=== PATIENT | male | born 1955 | race Caucasian/White ===

== ENCOUNTER 2018-02-19 08:55 | Observation (INO) ==
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
[2018-02-19] MEDS: *HR* HYDROcodone/Acet 10/325 mg TABLET PO PRN ×2 (12:25→19:24)
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
[2018-02-19 17:22] LABS: Bilirubin,Urine Negative (Negative); Blood,Urine Negative (Negative); Clarity,Urine Clear (Clear); Color,Urine Yellow (Yellow); Glucose,Urine (UA) >=1000 mg/dL (Normal); Ketones,Urine Negative (Negative); Leukocyte Esterase,Urine Negative (Negative); Nitrite,Urine Negative (Negative); Protein,Urine Trace mg/dL (Neg-Trace); Specific Gravity,Urine > 1.030 (1.010-1.025); Urobilinogen,Urine Normal (Normal)
[2018-02-19 17:25] LABS: Bacteria,Urine None Seen per hpf (None-Few); Hyaline Casts,Urine None Seen per lpf (None-Few); RBC,Urine 0-3 per hpf (0-3); Squamous Epithelial Cell,Urine Many per lpf (None-Few)
--- NOTE | 2018-02-20 00:26 | Anesthesia Evaluation PreOp ---
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 creatinine 1.34 on 02-18-18), Diabetes Type II (oral medications only - poorly controlled with A1c 9.3 on 02-18-18) Alcohol Use: none Drug use: none Medications and Allergies ALPRAZolam [Xanax 1 MG Tablet] 1 mg PO TID 02/19/18 [History] Albuterol Sulfate [Proair Hfa] 1 - 2 puff IH Q6H PRN 02/19/18 [History] Amlodipine Besylate 10 mg PO DAILY 02/19/18 [History] Aspirin 81 mg PO DAILY 02/19/18 [History] Carvedilol [Coreg] 25 mg PO BID 02/19/18 [History] Cyclobenzaprine [Flexeril] 10 mg PO TID 02/19/18 [History] Empagliflozin [Jardiance] 10 mg PO DAILY 02/19/18 [History] Etodolac 500 mg PO BID PRN 02/19/18 [History] HYDROcodone/Acet 5/325 mg [[place] 5-325 mg] 1 tab PO Q6H PRN 02/19/18 [History] Imipramine HCl [Tofranil] 10 mg PO HS 02/19/18 [History] Losartan Potassium [Cozaar] 100 mg PO DAILY 02/19/18 [History] Rosuvastatin Calcium [Crestor] 10 mg PO DAILY 02/19/18 [History] Spironolactone [Aldactone] 25 mg PO DAILY 02/19/18 [History] glyBURIDE [GlyBURIDE] 5 mg PO BID 02/19/18 [History] metFORMIN [Glucophage] 1,000 mg PO BID 02/19/18 [History] 3 Allergy/AdvReac Type Severity Reaction Status Date / Time acetaminophen [From Percocet] Allergy Hives Verified 02/19/18 08:44 atorvastatin [From Lipitor] Allergy Hives Verified 02/19/18 08:44 cephalexin [From Keflex] Allergy Hives Verified 02/19/18 08:44 naproxen [From Naprosyn] Allergy Hives Verified 02/19/18 08:44 Oxycodone [From Percocet] Allergy Hives Verified 02/19/18 08:44 Tetracycline Allergy Hives Verified 02/19/18 08:44 - Meds/Allergy Pre-op Review Medications Reviewed: Yes Allergies Reviewed: Yes Beta Blockers on Current Med List: Yes (coreg) Anesthesia Results - Labs 02/20/18 06:45 02/20/18 06:45 Laboratory Tests 02/14/18 02/18/18 02/18/18 18:56 11:38 11:38 WBC 13.3 H Hgb 14.2 D Hct 44.7 Plt Count 209 PT 11.6 INR 1.1 Sodium 137 Potassium 4.3 Chloride 103 Carbon Dioxide 23 BUN 38 H Creatinine 1.34 H Est GFR ( Amer) > 60 Est GFR (Non-Af Amer) 54 L BUN/Creatinine Ratio 28 H Glucose 210 H Est Mean Plasma Glucose Hemoglobin A1c Calculated Osmolality 299 Calcium 9.3 02/18/18 11:38 WBC Hgb Hct Plt Count PT INR Sodium Potassium Chloride Carbon Dioxide BUN Creatinine Est GFR ( Amer) Est GFR (Non-Af Amer) BUN/Creatinine Ratio Glucose Est Mean Plasma Glucose 220 Hemoglobin A1c 9.3 H Calculated Osmolality Calcium - Imaging EKG: report reviewed, image reviewed (SINUS RHYTHM POSSIBLE ANTERIOR MYOCARDIAL INFARCTION, OF INDETERMINATE AGE INFERIOR MYOCARDIAL INFARCTION, PROBABLY OLD INTERPRETATION BASED ON A DEFAULT AGE OF 40 YEARS) Anesthesia Exam Last Vital Signs Temp 98.0 F 02/19/18 23:38 Pulse 74 02/19/18 23:38 Resp 18 02/19/18 23:38 BP 126/83 02/19/18 23:38 Pulse Ox 91 02/19/18 23:38 Weight: 103 kg Anesthesia Assess/Plan ASA Score: 3 Anesthetic Plan: General, Regional Monitoring Plan: Standard Monitors Recovery Plan: PACU
[2018-02-20] MEDS: *HR* HYDROcodone/Acet 10/325 mg TABLET PO PRN ×3 (02:21→22:55)
[2018-02-20 07:26] LABS: Alanine Aminotransferase 10 Units/L (7-52); Albumin 3.9 g/dL (3.5-5.7); Albumin/Globulin Ratio 1.4 (1.1-2.2); Alkaline Phosphatase 51 Units/L (34-104); Aspartate Amino Transferase 15 Units/L (13-39); BUN/Creatinine Ratio 25 (6-26); Bilirubin,Total 0.6 mg/dL (0.3-1.0); Blood Urea Nitrogen 23 mg/dL (8-23); Calcium 9.2 mg/dL (8.6-10.3); Carbon Dioxide 26 mEq/L (23-29); Chloride 108 mEq/L (98-107); Globulin 2.8 g/dL (2.4-3.5); Glucose 179 mg/dL (70-105); Osmolality,Calculated 304 (280-300); Potassium 4.2 mEq/L (3.5-5.1); Sodium 143 mEq/L (136-145); Total Protein 6.7 g/dL (6.4-8.9); eGFR For African Americans > 60 (> 60); eGFR For Non-African Americans > 60 (> 60)
[2018-02-20 07:43] LABS: Basophils % 0.4 %; Eosinophils # 0.2 K/mcL (0.0-0.6); Eosinophils % 2.1 %; Hematocrit 44.9 % (37.5-50.1); Hemoglobin 14.3 g/dL (12.9-16.9); Immature Granulocytes % 0.3 % (0-4); Lymphocytes # 2.1 K/mcL (0.6-4.6); Mean Corpuscular HGB Conc 31.8 g/dL (31.6-35.5); Mean Corpuscular Volume 87.9 fL (83.0-100.0); Mean Platelet Volume 11.2 fL (9.4-12.4); Monocytes # 0.7 K/mcL (0.0-1.3); Monocytes % 7.4 %; Neutrophils # 6.8 K/mcL (1.6-8.9); Platelet Count 223 K/mcL (140-400); Red Blood Count 5.11 M/mcL (4.19-5.50); Segmented Neutrophils % 68.8 %
[2018-02-20] MEDS ORDERED: Dextrose Gel 15 GM/37.5 ML TUBE PO PRN ×4 (11:04→19:39)
[2018-02-20] MEDS ORDERED: D5% in Water 1,000 ML IVC PRN ×2 (11:04→19:39)
[2018-02-20] MEDS ORDERED: *HR* Dextrose 50 % in Water (Syg) 50 ML SYRINGE IVP PRN ×2 (11:04→19:39)
[2018-02-20] MEDS ORDERED: Insulin LISPRO 300 UNITS/3 ML VIAL SQ SCH ×5 (11:30→21:00)
[2018-02-20] MEDS ORDERED: Ondansetron 4 MG/2 ML VIAL ONE ×2 (14:16→15:33)
[2018-02-20] MEDS ORDERED: Lidocaine -MPF 2% 2 ML VIAL ONE ×2 (14:16→15:33)
[2018-02-20] MEDS ORDERED: Lidocaine -MPF 4% 5 ML AMPUL ONE ×2 (14:16→15:33)
[2018-02-20] MEDS ORDERED: *HR* Succinylcholine 200 MG/10 ML VIAL IVP ONE ×2 (14:16→15:33)
[2018-02-20] MEDS ORDERED: *HR* Midazolam HCl 2 MG/2 ML VIAL ONE ×2 (14:16→15:29)
[2018-02-20] MEDS ORDERED: *HR* FentaNYL (PF) 100 MCG/2 ML VIAL ONE ×2 (14:16→15:33)
[2018-02-20] MEDS ORDERED: Dexamethasone 4 MG/ML VIAL ONE ×2 (14:16→15:33)
[2018-02-20] MEDS ORDERED: *HR* Propofol 200 MG/20 ML VIAL IVP ONE ×2 (14:17→15:34)
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
[2018-02-20] MEDS ORDERED: Ipratropium/Albuterol Neb 3 ML IH PRN ×2 (16:02→19:39)
[2018-02-20] MEDS ORDERED: Albuterol 2.5 MG/3 ML NEBULIZER IH ONE (16:07)
[2018-02-20] MEDS ORDERED: Clindamycin 900 MG/50 ML 900 MG/50 ML IV.SOLN IVPB ONE ×2 (16:17→16:56)
--- NOTE | 2018-02-20 17:03 | Orthopedic Operative Note ---
Date of procedure: 02/20/18 Pre-op diagnosis: Displaced right proximal humerus fracture Post-op diagnosis: same Procedure: Procedure: Right proximal humerus open reduction internal fixation Estimated blood loss: 25 cc Hardware: Arthrex 3 hole proximal humeral locking plate, 1 3.5 cortical screws , 11 3.5 Locking screws Operative procedure: The patient was brought to the operating room and placed on the operating room table. After general anesthesia was administered the operative arm was prepped and draped in the sterile surgical fashion The patient received IV antibiotics prior to skin incision. A standard extended deltopectoral approach was made to the humerus, the incision is made to the skin and subcutaneous tissue. Hemostasis was obtained with Bovie cautery. Using careful blunt dissection the deltopectoral interval was developed, exposing the fracture site. Using fluoroscopic assistance a Arthrex 3 hole proximal humeral locking plate was approximated to the anterior lateral surface was fixed distally in compression with one 3.5 cortical screw. It was fixed proximally and distally with11 3.5 locking screws. Position of the hardware as well as fracture reduction found to be acceptable on fluoroscopic exam evaluation. The wound was irrigated the deltopectoral closed with a running #1 PDS suture case tissues irrigated and closed deep with 0 PDS suture superficially with 0 PDS suture was closed with Dermabond patient was sterile dressing and brace. The patient was extubated, and then transferred to the recovery room in stable condition. Anesthesia: GETA Surgeon: Andrew Pike Was there an event marketing assistant present: No Estimated blood loss (cc): 25 Condition: stable Disposition: PACU
[2018-02-20] MEDS ORDERED: *HR* Promethazine 25 MG/ML VIAL IVP PRN (17:06)
[2018-02-20] MEDS ORDERED: *HR* HYDROmorphone (PF) 1 MG/ML SYRINGE IVP PRN (17:06)
[2018-02-20] MEDS ORDERED: *HR* Morphine 10 MG/ML VIAL ONE (17:11)
--- NOTE | 2018-02-20 18:09 | Anesthesia Evaluation Post Op ---
Date of Encounter: 02/20/18 Time of Encounter: 18:08 - Vital Signs Vital Signs: Vital Signs - Last 8 Hours Temp Pulse Resp BP Pulse Ox 02/20/18 18:00 97.0 F L 78 16 146/76 02/20/18 17:50 78 16 144/69 90 02/20/18 17:40 80 16 179/72 92 02/20/18 17:30 97.3 F L 86 16 156/79 97 02/20/18 15:12 98.8 F 72 16 151/87 95 02/20/18 11:06 98.8 F 76 17 133/74 94 Intake and Output 02/20/18 02/20/18 02/20/18 07:59 15:59 23:59 Intake Total 0 / 0 0 / 0 50 / 50 Output Total 750 / 750 25 / 25 Balance 0 / 0 -750 / -750 25 / 25 Intake: IV Fluids 50 / 50 Cleocin Premix 900 MG/50 ML 900 50 / 50 mg In 50 ml @ 50 mls/hr IVPB ONCE ONE Rx#:[id number] Oral 0 / 0 0 / 0 Output: Urine 750 / 750 Estimated Blood Loss 25 / 25 Other: Weight 103.8 kg Blood Glucose* 193 209 161 Patient Weight 02/20/18 23:59 Weight 103.8 kg - Lungs Lungs: Clear Ascult./Percussion - Airway Airway: Non-obstructed - Cardiovascular Regular Rate, Baseline Rhythm - Mental Status Mental Status: Alert & Oriented, Answers Appropriately - Pain Pain Scale: 10 (c/o of pain only when asked, goes right back to sleep, very drowsy ) Pain Scale used: Numeric (1 - 10) - Nausea Vomiting Nausea Vomiting: Not Present - Hydration Hydration: Ice chips - Discharge PostOp Status: Transfer Patient to floor
[2018-02-20] MEDS ORDERED: MOM Conc 10 ML UD.LIQ PO PRN (19:39)
[2018-02-20] MEDS ORDERED: Naloxone 0.4 MG/ML INJ IVP PRN (19:39)
[2018-02-20] MEDS ORDERED: Ringers Solution, Lactated 1,000 ML IVC SCH (19:39)
[2018-02-20] MEDS ORDERED: Sennosides 8.6 MG TABLET PO PRN (19:39)
[2018-02-20] MEDS ORDERED: Temazepam 15 MG CAPSULE PO PRN (19:39)
[2018-02-20] MEDS ORDERED: Ondansetron 4 MG/2 ML VIAL IVP PRN (19:39)
[2018-02-20] MEDS: Clindamycin 900 MG/50 ML 900 MG/50 ML IV.SOLN IVPB SCH (23:39)
[2018-02-21] MEDS: *HR* HYDROcodone/Acet 10/325 mg TABLET PO PRN ×2 (05:50→12:02)
[2018-02-21 05:51] LABS: Hemoglobin 14.3 g/dL (12.9-16.9)
[2018-02-21] MEDS: Insulin LISPRO 300 UNITS/3 ML VIAL SQ SCH ×2 (07:59→12:04)
[2018-02-21] MEDS: Clindamycin 900 MG/50 ML 900 MG/50 ML IV.SOLN IVPB SCH (08:53)
--- NOTE | 2018-02-21 10:51 | Orthopedics Progress Note ---
Date of Encounter: 02/21/18 Time of Encounter: 10:50 Subjective Interval history: Patient was seen this morning doing well without complaints. Afebrile vital signs stable. Operative extremity: Neurovascularly intact Dressing clean dry and intact Calves nontender Assessment and plan: Continue with postoperative care Orthopedic stable for discharge Objective Vital signs: Vital Signs Temp Pulse Resp BP Pulse Ox 02/21/18 10:39 90 02/21/18 06:56 98.4 F 70 17 145/71 90 02/21/18 04:06 98.6 F 77 18 146/69 93 02/21/18 00:40 98.3 F 76 18 141/66 92 02/20/18 21:30 93 117/53 94 02/20/18 21:25 92 02/20/18 20:30 93 139/79 94 02/20/18 20:00 87 142/66 92 02/20/18 19:30 85 156/80 92 02/20/18 19:24 97.3 F L 83 14 149/80 89 02/20/18 19:03 130/92 90 02/20/18 18:48 84 153/75 89 02/20/18 18:33 97.9 F 79 16 155/77 90 02/20/18 18:20 97.2 F L 78 16 147/63 91 02/20/18 18:10 77 14 145/64 91 02/20/18 18:00 97.0 F L 78 16 146/76 91 02/20/18 17:50 78 16 144/69 90 02/20/18 17:40 80 16 179/72 92 02/20/18 17:30 97.3 F L 86 16 156/79 97 02/20/18 15:12 98.8 F 72 16 151/87 95 02/20/18 11:06 98.8 F 76 17 133/74 94 Intake and Output 02/20/18 02/21/18 02/21/18 23:59 07:59 15:59 Intake Total 50 / 50 50 / 50 0 / 0 Output Total 125 / 125 950 / 950 0 / 0 Balance -75 / -75 -900 / -900 0 / 0 Intake: IV Fluids 50 / 50 50 / 50 Cleocin Premix 900 MG/50 ML 900 50 / 50 50 / 50 mg In 50 ml @ 50 mls/hr IVPB Q8HR [facility] Rx#:[id number] Oral 0 / 0 Output: Urine 100 / 100 950 / 950 0 / 0 Estimated Blood Loss 25 / Other: # Voids 1 Blood Glucose* 232 205 - Labs CBC & BMP: 02/21/18 05:02 02/20/18 06:45 Labs: Abnormal lab results RDW 15.0 % (11.5-14.5) H 02/20/18 06:45 Chloride 108 mEq/L (98-107) H 02/20/18 06:45 Glucose 179 mg/dL (70-105) H 02/20/18 06:45 POC Glucose 232 mg/dL (70-99) H 02/20/18 19:40 Calculated Osmolality 304 (280-300) H 02/20/18 06:45 Ur Specific [place] > 1.030 (1.010-1.025) H 02/19/18 16:53 Urine Glucose (UA) >=1000 mg/dL (Normal) H 02/19/18 16:53 Urine Microscopic WBC 3-5 per hpf (0-3) H 02/19/18 16:53 Ur Squamous Epith Cells Many per lpf (None-Few) H 02/19/18 16:53 - VTE Documentation of Mechanical Device: Intermittent pneumatic compression device Consult Discharge Plan - Plan Referrals: Aquiles Merrill MD [Primary Care Provider] - 02/27/18 1:45 pm (Please follow up as schedule...) Lisa Laurent [Family Provider] -
[2018-02-21 11:02] VITALS: BP 162/94
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
--- NOTE | 2018-02-21 13:46 | Event Note ---
Date of Encounter: 02/21/18 Time of Encounter: 13:45 Met with patient and family. Reviewed restrictions regarding no shoulder motion. Educated patient and family and adjusted brace. Discussed Polar Cube use. Neurovascularly intact. In Slingshot brace as directed. Outpatient pain prescription provided. Keep follow up next week as scheduled. Patient to call [facility] with any questions or concerns.
== END 2018-02-21 13:53 | disposition home or self-care (01) ==
LOC: 2ANU → SUATTDRO 11:20
PROVIDERS: ADMIT Internal Medicine; ATTEND Internal Medicine

== ENCOUNTER 2018-03-22 10:19 | Inpatient (IN) ==
[2018-03-22] MEDS ORDERED: 0.9 % Sodium Chloride 1,000 ML IVC ONE (10:31)
[2018-03-22] MEDS ORDERED: Ondansetron 4 MG/2 ML VIAL IVP ONE (10:31)
[2018-03-22] MEDS ORDERED: Gadolinium Contrast Agent (WT Based) IV PRN (10:33)
[2018-03-22 11:10] LABS: Basophils % 0.4 %; Eosinophils # 0.2 K/mcL (0.0-0.6); Eosinophils % 2.8 %; Hematocrit 40.5 % (37.5-50.1); Hemoglobin 13.4 g/dL (12.9-16.9); Immature Granulocytes % 0.4 % (0-4); Lymphocytes # 1.5 K/mcL (0.6-4.6); Lymphocytes % 18.1 %; Mean Corpuscular HGB Conc 33.1 g/dL (31.6-35.5); Mean Corpuscular Hemoglobin 27.9 pg (28.0-33.3); Mean Corpuscular Volume 84.4 fL (83.0-100.0); Mean Platelet Volume 11.6 fL (9.4-12.4); Monocytes # 0.6 K/mcL (0.0-1.3); Monocytes % 6.7 %; Neutrophils # 6.1 K/mcL (1.6-8.9); Platelet Count 227 K/mcL (140-400); Segmented Neutrophils % 71.6 %
[2018-03-22 11:16] LABS: INR 1.1
[2018-03-22 11:18] LABS: Activated Partial Thrombo Time 28.4 Seconds (26.0-36.0)
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
[2018-03-22 11:30] LABS: Albumin 3.8 g/dL (3.5-5.7); Albumin/Globulin Ratio 1.2 (1.1-2.2); Bilirubin,Direct 0.1 mg/dL (0.0-0.2); Bilirubin,Indirect 0.5 mg/dL (0.0-1.2); Bilirubin,Total 0.6 mg/dL (0.3-1.0); Calcium 9.7 mg/dL (8.6-10.3); Globulin 3.2 g/dL (2.4-3.5); Potassium 4.1 mEq/L (3.5-5.1)
[2018-03-22] MEDS ORDERED: Levofloxacin 750 MG/150 ML 750 MG/150 ML BAG IVPB ONE (11:35)
[2018-03-22] MEDS ORDERED: *HR* HYDROcodone/Acet 5/325 mg TABLET PO ONE (12:03)
[2018-03-22] MEDS ORDERED: Naloxone 0.4 MG/ML INJ IVP PRN (13:27)
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
[2018-03-22 14:07] LABS: Bilirubin,Urine Negative (Negative); Blood,Urine Moderate (Negative); Clarity,Urine Clear (Clear); Color,Urine Yellow (Yellow); Glucose,Urine (UA) 500 mg/dL (Normal); Ketones,Urine Negative (Negative); Leukocyte Esterase,Urine Negative (Negative); Nitrite,Urine Negative (Negative); PH,Urine 5.5 pH Units (5.0-8.0); Protein,Urine Negative (Neg-Trace); Urobilinogen,Urine Normal (Normal)
[2018-03-22 14:09] LABS: Bacteria,Urine None Seen per hpf (None-Few); Hyaline Casts,Urine None Seen per lpf (None-Few); Squamous Epithelial Cell,Urine Many per lpf (None-Few)
[2018-03-22] MEDS ORDERED: *HR* HYDROcodone/Acet 5/325 mg TABLET PO PRN (14:45)
[2018-03-22] MEDS ORDERED: metOLazone 5 MG TABLET PO SCH (14:45)
[2018-03-22] MEDS: 0.9 % Sodium Chloride 1,000 ML IVC SCH (15:55)
[2018-03-22] MEDS: Furosemide 40 MG/4 ML VIAL IVP SCH (15:56)
[2018-03-22] MEDS: IMIPRAMINE HCL 10 MG PO SCH (20:39)
[2018-03-22] MEDS: *HR* GlyBURIDE 5 MG TABLET PO SCH (20:46)
[2018-03-23 01:59] LABS: Basophils % 0.2 %; Eosinophils # 0.1 K/mcL (0.0-0.6); Eosinophils % 1.5 %; Hematocrit 37.7 % (37.5-50.1); Hemoglobin 12.2 g/dL (12.9-16.9); Immature Granulocytes % 0.2 % (0-4); Lymphocytes # 1.7 K/mcL (0.6-4.6); Mean Corpuscular HGB Conc 32.4 g/dL (31.6-35.5); Mean Corpuscular Hemoglobin 27.6 pg (28.0-33.3); Mean Corpuscular Volume 85.3 fL (83.0-100.0); Mean Platelet Volume 11.8 fL (9.4-12.4); Monocytes # 0.6 K/mcL (0.0-1.3); Monocytes % 6.8 %; Neutrophils # 5.8 K/mcL (1.6-8.9); Platelet Count 214 K/mcL (140-400); Red Blood Count 4.42 M/mcL (4.19-5.50); Red Cell Distribution Width 14.8 % (11.5-14.5); Segmented Neutrophils % 70.3 %
[2018-03-23 02:16] LABS: Calcium 9.1 mg/dL (8.6-10.3); Potassium 3.6 mEq/L (3.5-5.1)
[2018-03-23] MEDS ORDERED: *HR* HYDROcodone/Acet 5/325 mg TABLET PO ONE (02:43)
[2018-03-23] MEDS: 0.9 % Sodium Chloride 1,000 ML IVC SCH (03:22)
[2018-03-23] MEDS: ALPRAZolam 1 MG TABLET PO PRN ×3 (08:15→22:38)
[2018-03-23] MEDS: Aspirin 81 MG TAB.CHEW PO SCH (08:16)
[2018-03-23] MEDS: *HR* GlyBURIDE 5 MG TABLET PO SCH (08:16)
[2018-03-23] MEDS: amLODIPine 5 MG TABLET PO SCH (08:16)
[2018-03-23] MEDS: Furosemide 40 MG/4 ML VIAL IVP SCH (08:16)
[2018-03-23] MEDS: (Empagliflozin [Jardiance] 10 MG) PO SCH (08:21)
[2018-03-23] MEDS ORDERED: *HR* Dextrose 50 % in Water (Syg) 50 ML SYRINGE IVP PRN (08:27)
[2018-03-23] MEDS ORDERED: D5% in Water 1,000 ML IVC PRN (08:27)
[2018-03-23] MEDS ORDERED: Dextrose Gel 15 GM/37.5 ML TUBE PO PRN ×2 (08:27)
[2018-03-23] MEDS: Insulin LISPRO 300 UNITS/3 ML VIAL SQ SCH ×3 (08:33→17:24)
[2018-03-23] MEDS ORDERED: Spironolactone 25 MG TABLET PO SCH (09:00)
[2018-03-23] MEDS: *HR* HYDROcodone/Acet 5/325 mg TABLET PO PRN ×2 (12:17→18:29)
--- NOTE | 2018-03-23 15:26 | Internal Med Progress Note ---
Date of Encounter: 03/23/18 Time of Encounter: 15:26 - Assessment and plan (1) Pneumonia Current Visit: Yes Status: Acute Assessment and plan: left mid lung infiltrate. On levofloxacin. WBC count normal. Will follow culture results. Qualifiers: Pneumonia type: due to unspecified organism Laterality: left Lung location: unspecified part of lung Qualified Code(s): J18.9 - Pneumonia, unspecified organism (2) Acute kidney injury Current Visit: Yes Status: Acute Assessment and plan: Improving. Likely due to bladder outlet obstruction. Creatinine 2.04 today. Continue IV hydration. Hold spironolactone and losartan. Follow renal function closely. Will get renal ultrasound. (3) Constipation Current Visit: Yes Status: Acute Assessment and plan: patient had a bowel movement this morning. Continue laxatives. Qualifiers: Constipation type: unspecified constipation type Qualified Code(s): K59.00 - Constipation, unspecified (4) COPD (chronic obstructive pulmonary disease) Current Visit: Yes Status: Chronic Assessment and plan: Not in acute exacerbation. Will use bronchodilators as needed Qualifiers: COPD type: unspecified COPD Qualified Code(s): J44.9 - Chronic obstructive pulmonary disease, unspecified (5) Dependent edema Current Visit: No Status: Acute Assessment and plan: On IV Lasix currently. We will transition to oral dose. Given acute kidney injury, will monitor renal function closely. (6) Diabetes mellitus Current Visit: No Status: Chronic Assessment and plan: Controlled. Continue to monitor blood sugars. Continue insulin per sliding scale coverage. We will adjust insulin regimen according to blood sugars. 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 (8) DVT prophylaxis Current Visit: Yes Status: Acute Assessment and plan: With subcutaneous heparin - Time Spent With Patient Total time spent is greater than 50% in coordination of care (as documented) at patient's floor/unit and/or counseling patient: - Subjective Interval history: Patient seen earlier today. Was sitting up in chair. No new complaints at this time. No dizziness or lightheadedness. He reports that he was supposed to follow up with orthopedics after his right upper extremity surgery last month. However he has not yet followed up with them. No chest pain or palpitations. - Constitutional Vitals: Temp Pulse Resp BP Pulse Ox 99.3 F 55 16 99/60 92 03/23/18 15:09 03/23/18 15:09 03/23/18 15:09 03/23/18 15:09 03/23/18 15:09 General appearance: Present: A&O X 3, pleasant, no acute distress, answers questions appropriately - Eye Eye exam: Present: EOMI, conjuntiva pink, sclera anicteric - Respiratory Respiratory exam: Present: CTAB. Absent: accessory muscle use, rales, rhonchi, wheezes - Cardiovascular Cardiovascular exam: Present: RRR, +S1, +S2. Absent: diastolic murmur, gallop, rubs, systolic murmur - Extremities Exam Extremities exam: Present: warm, radial pulses palpable and symmetrical. Absent : calf tenderness, cyanotic, pedal edema Additional comments: Right upper extremity in sling and elbow brace - Neurological Exam Neurological exam: Present: alert, no focal deficits. Absent: facial droop, speech deficit - Skin Skin exam: Present: dry, intact Internal Medicine: Result - Labs CBC & Chem 7: 03/23/18 01:15 03/23/18 00:55 Labs: Short CBC 03/23/18 Range/Units 01:15 WBC 8.2 (4.3-11.1) K/mcL Hgb 12.2 L (12.9-16.9) g/dL Hct 37.7 (37.5-50.1) % Plt Count 214 (140-400) K/mcL Neutrophils # 5.8 (1.6-8.9) K/mcL BMP 03/23/18 00:55 Sodium 139 Potassium 3.6 Chloride 98 Carbon Dioxide 31 H BUN 70 H Creatinine 2.04 H Glucose 108 H Calcium 9.1 Cardiac Enzymes 03/22/18 03/23/18 03/23/18 Range/Units 19:16 00:54 07:19 Troponin I < 0.03 < 0.03 0.04 H* (< 0.04) ng/mL - ABG Interpretation ABG results: PT/INR, D-dimer PT 12.0 Seconds (9.4-12.1) 03/22/18 10:59 - VTE Documentation of Mechanical Device: Intermittent pneumatic compression device Consult Discharge Plan - Plan Referrals: Aquiles Merrill MD [Primary Care Provider] - Lisa Laurent [Family Provider] -
[2018-03-23] MEDS ORDERED: Ringers Solution, Lactated 1,000 ML IVC SCH (15:45)
[2018-03-23] MEDS: Furosemide 40 MG TABLET PO SCH (17:26)
[2018-03-23] MEDS: *HR* Heparin 5,000 UNIT/ML VIAL SQ SCH (17:26)
[2018-03-23] MEDS: IMIPRAMINE HCL 10 MG PO SCH (21:00)
[2018-03-23] MEDS ORDERED: Insulin LISPRO 300 UNITS/3 ML VIAL SQ SCH (21:00)
[2018-03-24] MEDS: *HR* HYDROcodone/Acet 5/325 mg TABLET PO PRN ×2 (01:21→07:25)
[2018-03-24 02:20] LABS: Calcium 9.4 mg/dL (8.6-10.3); Potassium 3.4 mEq/L (3.5-5.1)
[2018-03-24 03:10] LABS: Basophils % 0.4 %; Eosinophils # 0.3 K/mcL (0.0-0.6); Eosinophils % 3.2 %; Hematocrit 37.2 % (37.5-50.1); Hemoglobin 11.9 g/dL (12.9-16.9); Immature Granulocytes % 0.4 % (0-4); Lymphocytes # 2.4 K/mcL (0.6-4.6); Lymphocytes % 28.4 %; Mean Corpuscular Hemoglobin 27.4 pg (28.0-33.3); Mean Corpuscular Volume 85.7 fL (83.0-100.0); Mean Platelet Volume 11.8 fL (9.4-12.4); Monocytes # 0.6 K/mcL (0.0-1.3); Monocytes % 7.4 %; Platelet Count 217 K/mcL (140-400); Red Blood Count 4.34 M/mcL (4.19-5.50); Red Cell Distribution Width 14.8 % (11.5-14.5); Segmented Neutrophils % 60.2 %
[2018-03-24] MEDS: *HR* Heparin 5,000 UNIT/ML VIAL SQ SCH (06:39)
[2018-03-24] MEDS: Insulin LISPRO 300 UNITS/3 ML VIAL SQ SCH ×2 (07:31→11:12)
--- NOTE | 2018-03-24 07:49 | Orthopedics Progress Note ---
Date of Encounter: 03/24/18 Time of Encounter: 07:47 Subjective Interval history: S: Patient is a 62-year-old male admitted for right proximal humerus fracture by Dr. Pike. The patient is about 4 weeks out and doing reasonably well from this and denies any significant shoulder pain. He is wearing a gunslinger sling is admitted for other reasons. O: Afebrile and vital signs are stable Right shoulder incision has healed nicely Neurovascularly intact distally A: Post internal fixation of the right proximal humerus P: Nonweightbearing to the right upper extremity The patient has a follow-up visit are with Dr. Pike scheduled in about 10 days Orthopedically stable for discharge Objective Vital signs: Vital Signs Temp Pulse Resp BP Pulse Ox 03/24/18 06:41 98.3 F 65 16 112/55 93 03/24/18 04:39 105/53 03/24/18 02:35 98.3 F 61 14 93/50 93 03/23/18 22:27 98.1 F 66 16 101/80 93 03/23/18 19:39 15 94 03/23/18 18:49 98.2 F 67 18 107/51 98 03/23/18 15:09 99.3 F 55 16 99/60 92 03/23/18 11:40 98.4 F 68 15 109/60 96 Intake and Output 03/23/18 03/23/18 03/24/18 15:59 23:59 07:59 Intake Total 1480 / 1480 350 / 350 1000 / 1000 Output Total 2125 / 2125 1450 / 1450 Balance -645 / -645 -1100 / -1100 1000 / 1000 Intake: IV Fluids 1000 / 1000 1000 / 1000 0.9 % Sodium Chloride 1,000 ML 1000 / 1000 @ 100 mls/hr IVC .Q10H DANIEL Rx#: [id number] Lactated Ringers 1,000 ML @ 75 1000 / 1000 mls/hr IVC .[id number] DANIEL Rx#: [id number] Oral 480 / 480 350 / 350 Output: Catheter 5 / 5 1450 / 1450 Other: Meal Lunch Percent of Meal Consumed 100% Blood Glucose* 263 180 110 - Labs CBC & BMP: 03/24/18 01:14 03/24/18 01:14 Labs: Abnormal lab results Hgb 11.9 g/dL (12.9-16.9) L 03/24/18 01:14 Hct 37.2 % (37.5-50.1) L 03/24/18 01:14 MCH 27.4 pg (28.0-33.3) L 03/24/18 01:14 RDW 14.8 % (11.5-14.5) H 03/24/18 01:14 Potassium 3.4 mEq/L (3.5-5.1) L 03/24/18 01:14 Chloride 97 mEq/L (98-107) L 03/24/18 01:14 Carbon Dioxide 32 mEq/L (23-29) H 03/24/18 01:14 BUN 51 mg/dL (8-23) H 03/24/18 01:14 Creatinine 1.66 mg/dL (0.70-1.30) H 03/24/18 01:14 Est GFR ( Amer) 51 (> 60) L 03/24/18 01:14 Est GFR (Non-Af Amer) 42 (> 60) L 03/24/18 01:14 BUN/Creatinine Ratio 31 (6-26) H 03/24/18 01:14 Glucose 115 mg/dL (70-105) H 03/24/18 01:14 POC Glucose 110 mg/dL (70-99) H 03/24/18 07:17 Calculated Osmolality 303 (280-300) H 03/24/18 01:14 AST 41 Units/L (13-39) H 03/22/18 10:59 Lipase 105 Units/L (11-82) H 03/22/18 10:59 Urine Glucose (UA) 500 mg/dL (Normal) H 03/22/18 13:55 Urine Blood Moderate (Negative) H 03/22/18 13:55 Urine Microscopic RBC 3-5 per hpf (0-3) H 03/22/18 13:55 Urine Microscopic WBC 3-5 per hpf (0-3) H 03/22/18 13:55 Ur Squamous Epith Cells Many per lpf (None-Few) H 03/22/18 13:55 - VTE Documentation of Mechanical Device: Intermittent pneumatic compression device Consult Discharge Plan - Plan Referrals: Aquiles Merrill MD [Primary Care Provider] - Lisa Laurent [Family Provider] -
[2018-03-24] MEDS: amLODIPine 5 MG TABLET PO SCH (08:16)
[2018-03-24] MEDS: Aspirin 81 MG TAB.CHEW PO SCH (08:16)
[2018-03-24] MEDS: Furosemide 40 MG TABLET PO SCH (08:17)
[2018-03-24] MEDS: (Empagliflozin [Jardiance] 10 MG) PO SCH (08:17)
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
[2018-03-24 10:56] VITALS: BP 94/60
[2018-03-24] MEDS ORDERED: Levofloxacin 750 MG/150 ML 750 MG/150 ML BAG IVPB SCH (15:00)
--- NOTE | 2018-03-25 15:57 | Electrocardiograph Report ---
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
== END 2018-03-24 13:31 | disposition home or self-care (01) | DRG 190 ==
LOC: EMEROO 10:19 → 3NENU 10:19 → SUATTDRO 13:27 → 3NENU 13:59
PROVIDERS: ADMIT Internal Medicine; ATTEND Internal Medicine

== ENCOUNTER 2018-03-29 08:33 | Inpatient (IN) ==
[2018-03-29] MEDS ORDERED: 0.9 % Sodium Chloride 1,000 ML IVC ONE ×3 (08:41→11:43)
--- NOTE | 2018-03-29 09:14 | Emergency Department Note ---
Disposition Clinical Impression: Sepsis Qualifiers: Sepsis type: sepsis due to unspecified organism Qualified Code(s): A41.9 - Sepsis, unspecified organism Disposition: Admitted As Inpatient Referrals: Aquiles Merrill MD [Primary Care Provider] - Lisa Laurent [Family Provider] - Forms: Work/School Release, ED Satisfaction Letter General Adult HPI - General Chief complaint: ED Skin/Abscess/Foreign Body Stated complaint: decreased urine, bed sores Time Seen by Provider: 03/29/18 08:40 Source: patient Limitations: no limitations - History of Present Illness Pain Scale: 5 - Related Data Home Medications Medication Instructions Recorded Confirmed ALPRAZolam [Xanax 1 MG Tablet] 1 mg PO TID 02/19/18 03/22/18 Albuterol Sulfate [Proair Hfa] 1 - 2 puff IH Q6H PRN 02/19/18 03/22/18 Amlodipine Besylate 10 mg PO DAILY 02/19/18 03/22/18 Aspirin 81 mg PO DAILY 02/19/18 03/22/18 Carvedilol [Coreg] 25 mg PO BID 02/19/18 03/22/18 Empagliflozin [Jardiance] 10 mg PO DAILY 02/19/18 03/22/18 HYDROcodone/Acet 5/325 mg [[place] 1 tab PO Q8H PRN 02/19/18 03/22/18 5-325 mg] Imipramine HCl [Tofranil] 10 mg PO HS 02/19/18 03/22/18 Losartan Potassium [Cozaar] 25 mg PO DAILY 02/19/18 03/22/18 Rosuvastatin Calcium [Crestor] 10 mg PO DAILY 02/19/18 03/22/18 Spironolactone [Aldactone] 25 mg PO DAILY 02/19/18 03/22/18 glyBURIDE [GlyBURIDE] 5 mg PO BID 02/19/18 03/22/18 metFORMIN [Glucophage] 1,000 mg PO BID 02/19/18 03/22/18 Furosemide [Lasix] 40 mg PO DAILY 03/22/18 03/22/18 Previous Rx's Medication Instructions Recorded Lactobacillus Acidophilus 1 each PO BID #20 capsule 03/24/18 [Acidophilus Lactobacillus] Tamsulosin HCl [Flomax] 0.4 mg PO HS #30 cap.er.24h 03/24/18 levoFLOXacin [Levaquin] 750 mg PO Q48H #4 tablet 03/24/18 Levofloxacin [Levaquin] 750 mg PO DAILY #5 tablet 03/25/18 Polyethylene Glycol 3350 [MiraLAX 1 scoop PO DAILY #510 gm 03/25/18 Powder Bulk 17.9 Oz] Allergies Allergy/AdvReac Type Severity Reaction Status Date / Time atorvastatin [From Lipitor] Allergy Hives Verified 03/24/18 21:06 cephalexin [From Keflex] Allergy Hives Verified 03/24/18 21:06 naproxen [From Naprosyn] Allergy Hives Verified 03/24/18 21:06 Oxycodone [From Percocet] Allergy Hives Verified 03/24/18 21:06 Tetracycline Allergy Hives Verified 03/24/18 21:06 Past Medical History - Past Medical History Medical history: Reports: COPD, diabetes, hyperlipidemia, hypertension Surgical history: Reports: non-contributory Psychiatric history: Reports: no psych history - Social History Smoking Status: Current every day smoker Smokeless Tobacco Status: No Alcohol use: Reports: none Drug use: Reports: none Physical Exam - General Limitations: no limitations General appearance: alert, in no apparent distress Course Vital Signs Temperature 98.0 F 03/29/18 08:35 Pulse Rate 96 03/29/18 08:35 Respiratory Rate 12 03/29/18 08:35 Blood Pressure 80/47 03/29/18 08:35 O2 Sat by Pulse Oximetry 92 03/29/18 08:35 Temperature 97.7 F 03/29/18 08:43 Pulse Rate 87 03/29/18 08:56 Respiratory Rate 16 03/29/18 08:56 Blood Pressure 71/41 03/29/18 08:56 O2 Sat by Pulse Oximetry 94 03/29/18 08:56 Oxygen Delivery Oxygen Delivery Nasal Cannula Attestation Statement - Attestation Attestation: I examined this patient and my medical decision-making was reviewed with the Resident Physician. I agree with the documented findings, disposition and treatment plan as described except to the extent set forth below. 62 year old male presents to the ED with hypotension and back pain secondary to bed sores with decreased urine output. He was most recently admitted to the hospital for simialry symptoms recently and had a eric catheter placed . HE is currently hypotensinve and has not had any urine output inteh past 24 hours in addition to incresed draingage from her scaral bedsores. Serafin the source of his infection although we will also rule out HCAP. Thu will have sepsis wokrup with aggresive resusitaiton and possible central line for vasopressor if he is not fluid responsive and admit ot medicine
[2018-03-29 09:20] LABS: Bilirubin,Urine Small (Negative); Blood,Urine Large (Negative); Clarity,Urine Turbid (Clear); Color,Urine Dark Yellow (Yellow); Glucose,Urine (UA) Normal (Normal); Ketones,Urine Negative (Negative); Leukocyte Esterase,Urine Small (Negative); Nitrite,Urine Negative (Negative); Protein,Urine >=300 mg/dL (Neg-Trace); Specific Gravity,Urine 1.028 (1.010-1.025); Urobilinogen,Urine Normal (Normal)
--- NOTE | 2018-03-29 09:32 | Emergency Department Note ---
Disposition Clinical Impression: Sepsis Qualifiers: Sepsis type: sepsis due to unspecified organism Qualified Code(s): A41.9 - Sepsis, unspecified organism Acute renal failure Qualifiers: Acute renal failure type: unspecified Qualified Code(s): N17.9 - Acute kidney failure, unspecified Sacral decubitus ulcer Qualifiers: Pressure ulcer stage: unspecified pressure ulcer stage Qualified Code(s): L89.159 - Pressure ulcer of sacral region, unspecified stage Leukocytosis Qualifiers: Leukocytosis type: unspecified Qualified Code(s): D72.829 - Elevated white blood cell count, unspecified UTI (urinary tract infection) Qualifiers: Urinary tract infection type: site unspecified Hematuria presence: without hematuria Qualified Code(s): N39.0 - Urinary tract infection, site not specified Disposition: Admitted As Inpatient Condition: Fair Time of Disposition: 16:15 General Adult HPI - General Chief complaint: ED Skin/Abscess/Foreign Body Stated complaint: decreased urine, bed sores Time Seen by Provider: 03/29/18 08:40 Source: patient Mode of arrival: ambulatory Limitations: no limitations Nursing Notes Reviewed: Yes Vital Signs Reviewed: Yes - History of Present Illness HPI Narrative: Patient is a 62-year-old male with past medical history of hypertension, hyperlipidemia, diabetes. He was also recently admitted to hospital for decreased urine output, had Clark placed, also was diagnosed with pneumonia and was sent home with Levaquin and has one dose remaining. He also has sacral ulcer that he and have been dressing at home. He was discharged from the hospital approximately one week ago. He presents today due to decreased urine output, generalized weakness. states that the patient has not had any urine output since 9 PM last night. The patient denies seeing any blood in his urine. He denies any nausea, vomiting, fevers, diarrhea, abdominal pain, chest pain, shortness of breath. He currently only complains of generalized fatigue and sacral pain from sacral ulcer. Pain Scale: 5 - Related Data Home Medications Medication Instructions Recorded Confirmed ALPRAZolam [Xanax 1 MG Tablet] 1 mg PO TID PRN 02/19/18 03/29/18 Albuterol Sulfate [Proair Hfa] 1 - 2 puff IH Q6H PRN 02/19/18 03/29/18 Amlodipine Besylate 10 mg PO DAILY 02/19/18 03/29/18 Aspirin 81 mg PO DAILY 02/19/18 03/29/18 Carvedilol [Coreg] 25 mg PO BID 02/19/18 03/29/18 Empagliflozin [Jardiance] 10 mg PO DAILY 02/19/18 03/29/18 Imipramine HCl [Tofranil] 10 mg PO HS 02/19/18 03/29/18 Rosuvastatin Calcium [Crestor] 10 mg PO DAILY 02/19/18 03/29/18 Spironolactone [Aldactone] 25 mg PO DAILY 02/19/18 03/29/18 glyBURIDE [GlyBURIDE] 5 mg PO BID 02/19/18 03/29/18 metFORMIN [Glucophage] 500 mg PO BID 02/19/18 03/29/18 Furosemide [Lasix] 40 mg PO BID 03/22/18 03/29/18 Losartan Potassium [Cozaar] 25 mg PO DAILY 03/29/18 03/29/18 Previous Rx's Medication Instructions Recorded Lactobacillus Acidophilus 1 each PO BID #20 capsule 03/24/18 [Acidophilus Lactobacillus] Tamsulosin HCl [Flomax] 0.4 mg PO HS #30 cap.er.24h 03/24/18 levoFLOXacin [Levaquin] 750 mg PO Q48H #4 tablet 03/24/18 Polyethylene Glycol 3350 [MiraLAX 1 scoop PO DAILY #510 gm 03/25/18 Powder Bulk 17.9 Oz] Allergies Allergy/AdvReac Type Severity Reaction Status Date / Time atorvastatin [From Lipitor] Allergy Hives Verified 03/29/18 09:46 cephalexin [From Keflex] Allergy Hives Verified 03/29/18 09:46 naproxen [From Naprosyn] Allergy Hives Verified 03/29/18 09:46 Oxycodone [From Percocet] Allergy Hives Verified 03/29/18 09:46 Tetracycline Allergy Hives Verified 03/29/18 09:46 All systems ED: reviewed and negative except as stated. Constitutional: Denies: fever Cardiovascular: Denies: chest pain Respiratory: Denies: cough, dyspnea Gastrointestinal: Denies: abdominal pain, nausea, vomiting, diarrhea Genitourinary: Reports: other (Decreased urine output). Denies: hematuria Musculoskeletal: Reports: other (Sacral pain) Neurological: Denies: headache, weakness, numbness, paresthesias Past Medical History - Past Medical History Attestation: Yes The following information was validated with the patient. Source: patient Medical history: Reports: COPD, diabetes, hyperlipidemia, hypertension Surgical history: Reports: non-contributory Psychiatric history: Reports: no psych history - Social History Smoking Status: Current every day smoker Smokeless Tobacco Status: No Alcohol use: Reports: none Drug use: Reports: none Physical Exam - General Limitations: no limitations General appearance: alert, in no apparent distress - Head Head exam: atraumatic, normocephalic, normal inspection - Eye Eye exam: Present: normal appearance, PERRL, EOMI - ENT ENT exam: normal exam, normal oropharynx, mucous membranes moist - Neck Neck exam: Present: normal inspection, full ROM, trachea midline. Absent: tenderness, meningismus - Chest Chest inspection: Present: normal inspection, symmetric chest wall rise - Cardiovascular Cardiovascular exam: Present: regular rate, normal rhythm, normal heart sounds - Abdominal Exam Abdominal exam: Present: soft, Non-Tender. Absent: tenderness, distention, guarding, rebound, rigidity - Extremities Exam Extremities exam: Present: other (Right upper extremity is in arm sling/brace; otherwise, the rest of the extremities are within normal limits.). Absent: pedal edema - Back Exam Back exam: Present: other (Large sacral ulcer proximally 20 cm x 20 cm with smaller stage II lesions and dried pus) - Neurological Exam Neurological exam: Present: alert, oriented X3 - Psychiatric Psychiatric exam: Present: normal affect, normal mood - Skin Skin exam: Present: warm, dry, normal color, other (Large sacral ulcer proximally 20 cm x 20 cm with smaller stage II lesions and dried pus) Course Course Narrative: Patient was hypertensive on presentation. 2 L normal saline bolus ordered. Patient was also saturating 92% he is placed on nasal cannula oxygen. He usually does not wear any oxygen on. With history of recent pneumonia, sacral ulcer that appears to be infected with pus drainage, there is concern for sepsis especially with low blood pressure. We will perform septic workup including a lactic acid, blood cultures were basic labs, troponin, chest x-ray, EKG.Will start empiric vanc to cover staph and meropenem to cover gram negatives. Cannot give zosyn due to allergy to keflex (hives). Update: Chest x-ray negative for any acute cardio pulmonary findings. Patient did have leukocytosis. Patient also had signs of UTI. This will be covered with medications started for sacral ulcer. Labs show acute renal failure. Patient has been given 3 L normal saline bolus while in the ER. DPs are improving to systolic of 110. Patient will be admitted at this time for further care. Chest X-Ray 03/29/18 09:11 IMPRESSION: Previously noted opacity in left lung base is no longer visualized. No new acute cardiopulmonary findings. D/ / Lynnette Ontiveros MD / Lynnette Ontiveros MD Interpreting Provider: Lynnette Ontiveros MD Vital Signs Temperature 98.0 F 03/29/18 08:35 Pulse Rate 96 03/29/18 08:35 Respiratory Rate 12 03/29/18 08:35 Blood Pressure 80/47 03/29/18 08:35 O2 Sat by Pulse Oximetry 92 03/29/18 08:35 Temperature 97.4 F L 03/29/18 12:35 Pulse Rate 92 03/29/18 12:35 Respiratory Rate 18 03/29/18 12:35 Blood Pressure 114/76 03/29/18 12:35 O2 Sat by Pulse Oximetry 96 03/29/18 12:35 Oxygen Delivery Oxygen Delivery Nasal Cannula Medical Decision Making - [facility] Narrative Medical decision making narrative: Patient was hypertensive on presentation. 2 L normal saline bolus ordered. Patient was also saturating 92% he is placed on nasal cannula oxygen. He usually does not wear any oxygen on. With history of recent pneumonia, sacral ulcer that appears to be infected with pus drainage, there is concern for sepsis especially with low blood pressure. We will perform septic workup including a lactic acid, blood cultures were basic labs, troponin, chest x-ray, EKG.Will start empiric vanc to cover staph and meropenem to cover gram negatives. Cannot give zosyn due to allergy to keflex (hives). Update: Chest x-ray negative for any acute cardio pulmonary findings. Patient did have leukocytosis. Patient also had signs of UTI. This will be covered with medications started for sacral ulcer. Labs show acute renal failure. Patient has been given 3 L normal saline bolus while in the ER. DPs are improving to systolic of 110. Patient will be admitted at this time for further care. - Medical Records Medical records reviewed: Yes I reviewed the patient's medical records. - Lab Data Lab results reviewed: Yes I reviewed the patient's lab results. Result diagrams: 03/29/18 09:42 03/29/18 09:42 Lab Results 03/29/18 03/29/18 03/29/18 Range/Units 09:04 09:42 09:42 WBC 14.9 H (4.3-11.1) K/mcL RBC 3.87 L (4.19-5.50) M/mcL Hgb 11.2 L D (12.9-16.9) g/dL Hct 32.6 L (37.5-50.1) % MCV 84.2 (83.0-100.0) fL MCH 28.9 (28.0-33.3) pg MCHC 34.4 (31.6-35.5) g/dL RDW 15.1 H (11.5-14.5) % Plt Count 194 (140-400) K/mcL MPV 11.7 (9.4-12.4) fL Immature Gran % 0.4 (0-4) % Seg Neutrophils % 80.0 % Lymphocytes % 13.4 % Monocytes % 5.8 % Eosinophils % 0.3 % Basophils % 0.1 % Neutrophils # 11.9 H (1.6-8.9) K/mcL Lymphocytes # 2.0 (0.6-4.6) K/mcL Monocytes # 0.9 (0.0-1.3) K/mcL Eosinophils # 0.0 (0.0-0.6) K/mcL Basophils # 0.0 (0.0-0.2) K/mcL PT 15.3 H (9.4-12.1) Seconds INR 1.4 APTT 27.9 (26.0-36.0) Seconds Sodium (136-145) mEq/L Potassium (3.5-5.1) mEq/L Chloride (98-107) mEq/L Carbon Dioxide (23-29) mEq/L BUN (8-23) mg/dL Creatinine (0.70-1.30) mg/dL Est GFR ( Amer) (> 60) Est GFR (Non-Af Amer) (> 60) BUN/Creatinine Ratio (6-26) Glucose (70-105) mg/dL Calculated Osmolality (280-300) Lactic Acid (0.5-2.2) mmol/L Calcium (8.6-10.3) mg/dL Phosphorus (2.7-4.5) mg/dL Magnesium (1.6-2.6) mg/dL Troponin I (< 0.04) ng/mL Ur Specimen Adequacy See below A Urine Color Dark Yellow (Yellow) Urine Clarity Turbid A (Clear) Urine pH 5.0 (5.0-8.0) pH Units Ur Specific [place] 1.028 H (1.010-1.025) Urine Protein >=300 H (Neg-Trace) mg/dL Urine Glucose (UA) Normal (Normal) mg/dL Urine Ketones Negative (Negative) mg/dL Urine Blood Large H (Negative) Urine Nitrite Negative (Negative) Urine Bilirubin Small H (Negative) Urine Urobilinogen Normal (Normal) mg/dL Ur Leukocyte Esterase Small H (Negative) Urine Microscopic RBC TNTC H (0-3) per hpf Urine Microscopic WBC 3-5 H (0-3) per hpf Ur Transition Epith Cell Moderate H (None-Few) per hpf Urine Bacteria Many H (None-Few) per hpf Hyaline Casts Few (None-Few) per lpf Granular Casts Few H (None Seen) per lpf RBC Casts Few H (None Seen) per lpf Urine Mucus Moderate H (Few) Urine Yeast Few H (None Seen) per hpf Ur Culture Indicated? YES A (NO) 03/29/18 03/29/18 Range/Units 09:42 09:42 WBC (4.3-11.1) K/mcL RBC (4.19-5.50) M/mcL Hgb (12.9-16.9) g/dL Hct (37.5-50.1) % MCV (83.0-100.0) fL MCH (28.0-33.3) pg MCHC (31.6-35.5) g/dL RDW (11.5-14.5) % Plt Count (140-400) K/mcL MPV (9.4-12.4) fL Immature Gran % (0-4) % Seg Neutrophils % % Lymphocytes % % Monocytes % % Eosinophils % % Basophils % % Neutrophils # (1.6-8.9) K/mcL Lymphocytes # (0.6-4.6) K/mcL Monocytes # (0.0-1.3) K/mcL Eosinophils # (0.0-0.6) K/mcL Basophils # (0.0-0.2) K/mcL PT (9.4-12.1) Seconds INR APTT (26.0-36.0) Seconds Sodium 131 L (136-145) mEq/L Potassium 3.4 L (3.5-5.1) mEq/L Chloride 88 L (98-107) mEq/L Carbon Dioxide 25 (23-29) mEq/L BUN 82 H (8-23) mg/dL Creatinine 3.14 H (0.70-1.30) mg/dL Est GFR ( Amer) 25 L (> 60) Est GFR (Non-Af Amer) 20 L (> 60) BUN/Creatinine Ratio 26 (6-26) Glucose 70 (70-105) mg/dL Calculated Osmolality 295 (280-300) Lactic Acid 2.8 H (0.5-2.2) mmol/L Calcium 8.8 (8.6-10.3) mg/dL Phosphorus 6.4 H (2.7-4.5) mg/dL Magnesium 1.7 (1.6-2.6) mg/dL Troponin I < 0.03 (< 0.04) ng/mL Ur Specimen Adequacy Urine Color (Yellow) Urine Clarity (Clear) Urine pH (5.0-8.0) pH Units Ur Specific [place] (1.010-1.025) Urine Protein (Neg-Trace) mg/dL Urine Glucose (UA) (Normal) mg/dL Urine Ketones (Negative) mg/dL Urine Blood (Negative) Urine Nitrite (Negative) Urine Bilirubin (Negative) Urine Urobilinogen (Normal) mg/dL Ur Leukocyte Esterase (Negative) Urine Microscopic RBC (0-3) per hpf Urine Microscopic WBC (0-3) per hpf Ur Transition Epith Cell (None-Few) per hpf Urine Bacteria (None-Few) per hpf Hyaline Casts (None-Few) per lpf Granular Casts (None Seen) per lpf RBC Casts (None Seen) per lpf Urine Mucus (Few) Urine Yeast (None Seen) per hpf Ur Culture Indicated? (NO) - Radiology Data Radiology results reviewed: Yes I reviewed the patient's radiology results. Chest X-Ray 03/29/18 09:11 IMPRESSION: Previously noted opacity in left lung base is no longer visualized. No new acute cardiopulmonary findings. D/ / Lynnette Ontiveros MD / Lynnette Ontiveros MD Interpreting Provider: Lynnette Ontiveros MD - EKG Data EKG #1 EKG attestation: Yes I reviewed and interpreted this EKG. EKG results narrative: 03/29/2018 08:53. Normal sinus rhythm. Rate 85. MA 183. QRS 118. QTC 426. Normal axis. No acute ST elevation or depression. S.B.A.R. - S.B.A.R. Situation: Demographics, MOA Background: Presenting Complaint, Relevant PMH, Meds, & Allergies Assessment: Vital Signs, Course and respsone to treatment, Exam Concerns, Patient/Family Expectation, Pertinant Lab Results Recommendation: Barrier(s) to disposition, Recommendation based on pending studies, treatments, or consults S.B.A.R. Report Given to: Dr. Dominguez
[2018-03-29 09:34] LABS: Bacteria,Urine Many per hpf (None-Few); Granular Casts,Urine Few per lpf (None Seen); Hyaline Casts,Urine Few per lpf (None-Few); Mucus,Urine Moderate (Few); RBC,Urine TNTC per hpf (0-3); Red Blood Cell Casts,Urine Few per lpf (None Seen)
[2018-03-29 09:35] LABS: Transitional Epi Cells,Urine Moderate per hpf (None-Few); Yeast,Urine Few per hpf (None Seen)
[2018-03-29] MEDS ORDERED: Piperacillin/Tazobactam 3.375 GM in 0.9 % Sodium Chloride Mini Bag 100 ML IVPB ONE (09:36)
[2018-03-29] MEDS ORDERED: Meropenem 1,000 MG in 0.9 % Sodium Chloride Mini Bag 100 ML IVPB ONE (09:38)
[2018-03-29 09:54] LABS: Basophils % 0.1 %; Eosinophils % 0.3 %; Hematocrit 32.6 % (37.5-50.1); Immature Granulocytes % 0.4 % (0-4); Lymphocytes % 13.4 %; Mean Corpuscular HGB Conc 34.4 g/dL (31.6-35.5); Mean Corpuscular Hemoglobin 28.9 pg (28.0-33.3); Mean Corpuscular Volume 84.2 fL (83.0-100.0); Mean Platelet Volume 11.7 fL (9.4-12.4); Monocytes # 0.9 K/mcL (0.0-1.3); Monocytes % 5.8 %; Neutrophils # 11.9 K/mcL (1.6-8.9); Platelet Count 194 K/mcL (140-400); Red Blood Count 3.87 M/mcL (4.19-5.50); Red Cell Distribution Width 15.1 % (11.5-14.5)
[2018-03-29 09:56] LABS: Hemoglobin 11.2 g/dL (12.9-16.9)
[2018-03-29 09:59] LABS: INR 1.4; Prothrombin Time 15.3 Seconds (9.4-12.1)
[2018-03-29 10:02] LABS: Activated Partial Thrombo Time 27.9 Seconds (26.0-36.0)
[2018-03-29 10:19] LABS: BUN/Creatinine Ratio 26 (6-26); Blood Urea Nitrogen 82 mg/dL (8-23); Calcium 8.8 mg/dL (8.6-10.3); Carbon Dioxide 25 mEq/L (23-29); Chloride 88 mEq/L (98-107); Glucose 70 mg/dL (70-105); Magnesium 1.7 mg/dL (1.6-2.6); Osmolality,Calculated 295 (280-300); Phosphorous 6.4 mg/dL (2.7-4.5); Potassium 3.4 mEq/L (3.5-5.1); Sodium 131 mEq/L (136-145); Troponin I < 0.03 ng/mL (< 0.04); eGFR For African Americans 25 (> 60); eGFR For Non-African Americans 20 (> 60)
[2018-03-29] MEDS ORDERED: Naloxone 0.4 MG/ML INJ IVP PRN (12:46)
[2018-03-29] MEDS ORDERED: ALPRAZolam 1 MG TABLET PO PRN (12:50)
--- NOTE | 2018-03-29 12:55 | Internal Med History&Physical ---
Date of Encounter: 03/29/18 Time of Encounter: 12:54 Internal Medicine - H&P: HPI Chief complaint: Decreased urine output Admitted From: Emergency Dept Plans for Post Hospital Care: Home History of present illness: Mr. Coyne is a 62 year old male who is a background medical history of diabetes, hypertension, dyslipidemia, sacral ulcer,. Patient was recently discharged from the hospital. Family noted that patient has significantly decreased urine output. Family denies any blood in the urine. Patient denies nausea, vomiting, fever, diarrhea, chest pain, shortness of breath, dizziness. patient complains of generalized fatigue and sacral pain from the sacral ulcer. Past Med Surg Social Fam HX - Past Medical History Medical history: COPD, diabetes, hyperlipidemia, hypertension Psychiatric history: no psych history - Past Surgical History Surgical History: non-contributory - Social History Smoking Status: Current every day smoker Smokeless Tobacco Status: No Alcohol use: none Drug use: none - Family History Mother Adopted: No Family Member Ethnicity: Non- Living Status: Hx Family Cardiac Disorders: Yes Hx Family Endocrine Disorder: Yes (DM) Father Hx Family Cancer: Yes (colorectal) Internal Medicine - H&P: Meds ALPRAZolam [Xanax 1 MG Tablet] 1 mg PO TID PRN 02/19/18 [History] Albuterol Sulfate [Proair Hfa] 1 - 2 puff IH Q6H PRN 02/19/18 [History] Amlodipine Besylate 10 mg PO DAILY 02/19/18 [History] Aspirin 81 mg PO DAILY 02/19/18 [History] Carvedilol [Coreg] 25 mg PO BID 02/19/18 [History] Empagliflozin [Jardiance] 10 mg PO DAILY 02/19/18 [History] Imipramine HCl [Tofranil] 10 mg PO HS 02/19/18 [History] Rosuvastatin Calcium [Crestor] 10 mg PO DAILY 02/19/18 [History] Spironolactone [Aldactone] 25 mg PO DAILY 02/19/18 [History] glyBURIDE [GlyBURIDE] 5 mg PO BID 02/19/18 [History] metFORMIN [Glucophage] 500 mg PO BID 02/19/18 [History] Furosemide [Lasix] 40 mg PO BID 03/22/18 [History] Lactobacillus Acidophilus [Acidophilus Lactobacillus] 1 each PO BID #20 capsule 03/24/18 [Rx] Tamsulosin HCl [Flomax] 0.4 mg PO HS #30 cap.er.24h 03/24/18 [Rx] levoFLOXacin [Levaquin] 750 mg PO Q48H #4 tablet 03/24/18 [Rx] Polyethylene Glycol 3350 [MiraLAX Powder Bulk 17.9 Oz] 1 scoop PO DAILY #510 gm 03/25/18 [Rx] Losartan Potassium [Cozaar] 25 mg PO DAILY 03/29/18 [History] 3 Allergy/AdvReac Type Severity Reaction Status Date / Time atorvastatin [From Lipitor] Allergy Hives Verified 03/29/18 09:46 cephalexin [From Keflex] Allergy Hives Verified 03/29/18 09:46 naproxen [From Naprosyn] Allergy Hives Verified 03/29/18 09:46 Oxycodone [From Percocet] Allergy Hives Verified 03/29/18 09:46 Tetracycline Allergy Hives Verified 03/29/18 09:46 All Systems PM: A 10-system review of systems was performed and is negative for pertinent findings except as documented above in the HPI. - Constitutional Constitutional: fatigue, lethargy, malaise, no chills, no fever(s), no night sweats - EENT Eyes: no change in vision, no discharge, no pain, no photophobia Ears: no ear discharge, no ear pain, no tinnitus Nose, mouth and throat: no dysphagia, no nasal discharge, no neck pain, no sore throat - Cardiovascular Cardiovascular ROS IM: no chest pain, no diaphoresis, no dyspnea, no lightheadedness, no palpitations, no syncope - Respiratory Respiratory: no cough, no dyspnea, no wheezing, no excessive phlegm production - Gastrointestinal Gastrointestinal: no abdominal pain, no diarrhea, no hematemesis, no hematochezia, no melena, no nausea, no vomiting - Musculoskeletal Musculoskeletal ROS IM: no numbness, no tingling - Integumentary Integumentary IM: no rash, no unusual bruising - Neurological Neurological ROS: no confusion, no convulsions, no focal weakness, no numbness, no tingling, no tremor(s) - Hematologic/Lymphatic Hematologic/Lymphatic: no easy bruising - Constitutional Vitals: Temp Pulse Resp BP Pulse Ox 97.7 F 80 18 109/70 95 03/29/18 08:43 03/29/18 11:30 03/29/18 12:00 03/29/18 12:00 03/29/18 11:30 General appearance: Present: A&O X 3, pleasant, no acute distress - Head Head exam: Present: atraumatic, normocephalic - Eye Eye exam: Present: PERRL, conjuntiva pink, sclera anicteric Pupils: Present: PERRL - Neck Neck exam general surgery: Present: supple, trachea midline. Absent: lymphadenopathy - Respiratory Respiratory exam: Present: CTAB. Absent: accessory muscle use, rales, rhonchi, wheezes - Cardiovascular Cardiovascular exam: Present: RRR, +S1, +S2. Absent: diastolic murmur, gallop, rubs, systolic murmur - GI/Abdominal GI/Abdominal exam: Present: normal bowel sounds, soft, no peritoneal signs. Absent: distended, tenderness - Extremities Exam Extremities exam: Present: warm, radial pulses palpable and symmetrical. Absent : calf tenderness, cyanotic, pedal edema - Neurological Exam Neurological exam: Present: CN II-XII intact, oriented X3, no focal deficits. Absent: pronater drift, facial droop, speech deficit - Skin Skin exam: Present: dry, intact Internal Med - H&P Results - Labs CBC & Chem 7: 03/29/18 09:42 03/29/18 09:42 - Assessment and plan (1) Acute kidney injury Current Visit: Yes Status: Acute Assessment and plan: Patient is are acute kidney injury. Etiology for acute kidney injury can be multifactorial. Patient was recently on a levofloxacin. We will start patient on a broad-spectrum antibiotics. Meropenem/vancomycin was given in the emergency department. We will hold the vancomycin for now. We will continue meropenem for now. Continuation of antibiotics as per the culture results. I examined this patient in the emergency department room #4. Patient's family member at bedside. Plan of care discussed with the patient and family. (2) UTI (urinary tract infection) Current Visit: Yes Status: Acute Assessment and plan: Patient does have a urinary tract infection area This is likely secondary to the catheter placement. We will continue antibiotics. Close monitoring of the urine infection. Qualifiers: Urinary tract infection type: acute cystitis Hematuria presence: without hematuria Qualified Code(s): N30.00 - Acute cystitis without hematuria (3) Diabetes mellitus Current Visit: No Status: Chronic Assessment and plan: Patient is known to have diabetes mellitus. We will follow the recommendations from subcutaneous tenderness insulin order set. Qualifiers: Diabetes mellitus type: type 2 Diabetes mellitus long-term insulin use: without terminal supervisor use Diabetes mellitus complication status: with unspecified complications Qualified Code(s): E11.8 - Type 2 diabetes mellitus with unspecified complications (4) Essential hypertension Current Visit: No Status: Chronic Assessment and plan: Patient is a essential hypertension. We will resume the home medication. Close monitoring of the blood pressure. (5) Decubitus ulcer Current Visit: No Status: Chronic Assessment and plan: Patient does have a decubitus ulcer on the sacral area. Wound care consult. We will follow the recommendations from wound care Qualifiers: Pressure ulcer location: sacral region Pressure ulcer stage: stage 2 Qualified Code(s): L89.152 - Pressure ulcer of sacral region, stage 2 (6) DVT prophylaxis Current Visit: No Status: Acute Assessment and plan: heparin Medical decision making: This patient has a moderate to severe risk of worsening in spite of being on appropriate medication due to the underlying complex comorbid conditions. - Time Spent With Patient Total time spent is greater than 50% in coordination of care (as documented) at patient's floor/unit and/or counseling patient:
[2018-03-29] MEDS ORDERED: Dextrose Gel 15 GM/37.5 ML TUBE PO PRN ×2 (13:22)
[2018-03-29] MEDS ORDERED: *HR* Dextrose 50 % in Water (Syg) 50 ML SYRINGE IVP PRN (13:22)
[2018-03-29] MEDS ORDERED: D5% in Water 1,000 ML IVC PRN (13:22)
[2018-03-29] MEDS: Insulin LISPRO 300 UNITS/3 ML VIAL SQ SCH ×2 (16:06→22:12)
[2018-03-29] MEDS: Meropenem 1,000 MG in 0.9 % Sodium Chloride Mini Bag 100 ML IVPB SCH (18:57)
[2018-03-29] MEDS: *HR* Heparin 5,000 UNIT/ML VIAL SQ SCH (22:11)
[2018-03-29] MEDS: Lactobacillus 1 EACH CAP.SPRINK PO SCH (22:11)
[2018-03-30] MEDS: 0.9 % Sodium Chloride 1,000 ML IVC SCH ×4 (00:22→21:46)
[2018-03-30] MEDS: *HR* HYDROcodone/Acet 5/325 mg TABLET PO PRN ×4 (01:42→22:32)
[2018-03-30 01:53] LABS: Albumin/Globulin Ratio 1.3 (1.1-2.2); Bilirubin,Total 0.3 mg/dL (0.3-1.0); Calcium 8.5 mg/dL (8.6-10.3); Chol/HDL Ratio 4.1 (0-4.9); Globulin 2.4 g/dL (2.4-3.5); Magnesium 1.9 mg/dL (1.6-2.6); Phosphorous 4.2 mg/dL (2.7-4.5); Potassium 3.1 mEq/L (3.5-5.1); Total Protein 5.4 g/dL (6.4-8.9)
[2018-03-30] MEDS ORDERED: D5% in 0.9% NACL 1,000 ML IVC ONE (01:59)
[2018-03-30] MEDS: D5% in 0.9% NACL 1,000 ML IVC SCH ×2 (02:05→20:16)
[2018-03-30 02:09] LABS: INR 1.3; Prothrombin Time 13.9 Seconds (9.4-12.1)
[2018-03-30 02:45] LABS: Basophils % 0.1 %; Eosinophils % 0.3 %; Hematocrit 32.4 % (37.5-50.1); Hemoglobin 10.8 g/dL (12.9-16.9); Immature Granulocytes % 0.4 % (0-4); Lymphocytes # 1.8 K/mcL (0.6-4.6); Lymphocytes % 14.2 %; Mean Corpuscular HGB Conc 33.3 g/dL (31.6-35.5); Mean Corpuscular Hemoglobin 27.9 pg (28.0-33.3); Mean Corpuscular Volume 83.7 fL (83.0-100.0); Mean Platelet Volume 11.7 fL (9.4-12.4); Monocytes # 0.8 K/mcL (0.0-1.3); Monocytes % 6.1 %; Neutrophils # 9.9 K/mcL (1.6-8.9); Platelet Count 192 K/mcL (140-400); Red Blood Count 3.87 M/mcL (4.19-5.50); Red Cell Distribution Width 14.8 % (11.5-14.5); Segmented Neutrophils % 78.9 %
[2018-03-30] MEDS: Meropenem 1,000 MG in 0.9 % Sodium Chloride Mini Bag 100 ML IVPB SCH (05:33)
[2018-03-30] MEDS: *HR* Heparin 5,000 UNIT/ML VIAL SQ SCH ×3 (05:35→22:00)
[2018-03-30] MEDS: Insulin LISPRO 300 UNITS/3 ML VIAL SQ SCH ×4 (07:30→22:33)
[2018-03-30] MEDS ORDERED: (Empagliflozin [Jardiance] 10 MG) PO SCH (09:00)
[2018-03-30] MEDS ORDERED: 0.9 % Sodium Chloride 1,000 ML IVC ONE ×2 (09:49→13:45)
[2018-03-30] MEDS: Lactobacillus 1 EACH CAP.SPRINK PO SCH ×2 (12:08→21:47)
[2018-03-30] MEDS: Spironolactone 25 MG TABLET PO SCH (12:08)
[2018-03-30] MEDS: amLODIPine 5 MG TABLET PO SCH (12:08)
[2018-03-30] MEDS: Aspirin 81 MG TAB.CHEW PO SCH (12:08)
[2018-03-30] MEDS: Nystatin POWDER 30 GM BOTTLE TP SCH ×3 (12:13→22:00)
[2018-03-30 14:20] LABS: Calcium 8.3 mg/dL (8.6-10.3)
[2018-03-30] MEDS: Piperacillin/Tazobactam 3.375 GM in 0.9 % Sodium Chloride Mini Bag 100 ML IVPB SCH (17:35)
--- NOTE | 2018-03-30 19:40 | Internal Med Progress Note ---
Date of Encounter: 03/30/18 Time of Encounter: 14:37 - Assessment and plan (1) UTI (urinary tract infection) Current Visit: Yes Status: Acute Assessment and plan: Patient with eric. Would ideally like to discontinue eric, but will first consult urology in AM because he had urinary retention during last hospitalization. Appreciate their input. I have deescalated IV meropenem. I see no reason for carbapenem to treat this UTI. It was started in ED and then just continued upon hospital admission by admitting hospitalist Dr. Price, who I spoke with today. Will start IV vancomycin and IV zosyn for UTI, and monitor for improvement. Urine culture with only yeast preliminary. Follow up on final urine culture. Continue IVF as per above. Qualifiers: Urinary tract infection type: acute cystitis Hematuria presence: without hematuria Qualified Code(s): N30.00 - Acute cystitis without hematuria (2) Acute kidney injury Current Visit: Yes Status: Acute Assessment and plan: Improving. Continue IV NS. Recheck BMP in AM. (3) Decubitus ulcer Current Visit: Yes Status: Chronic Assessment and plan: Wound care consulted. Topical nystatin is appropriate due to concern of yeast. Given 1-time dose of diflucan due to yeast in urine, but this was likely poor catch. Qualifiers: Pressure ulcer location: sacral region Pressure ulcer stage: stage 2 Qualified Code(s): L89.152 - Pressure ulcer of sacral region, stage 2 (4) Diabetes mellitus Current Visit: Yes Status: Chronic Assessment and plan: Mild hypoglycemia this AM resolved. Continue accuchecks and SSI QID AC/HS. Qualifiers: Diabetes mellitus type: type 2 Diabetes mellitus terminal operator insulin use: without [facility] use Diabetes mellitus complication status: with unspecified complications Qualified Code(s): E11.8 - Type 2 diabetes mellitus with unspecified complications (5) Essential hypertension Current Visit: Yes Status: Chronic Assessment and plan: Continue home medications. (6) Urinary retention Current Visit: Yes Status: Acute Assessment and plan: Came in with eric. Was supposed to be removed this week by urology. Will consult urology in AM; appreciate their help with this issue. (7) DVT prophylaxis Current Visit: Yes Status: Acute Assessment and plan: Continue SQ heparin. - Time Spent With Patient Total time spent is greater than 50% in coordination of care (as documented) at patient's floor/unit and/or counseling patient: 25 - 35 minutes - Subjective Interval history: Patient had no acute events overnight. He states that he is feeling better today. He still has some pain in sacral wound area. He is in no pain right now , but norco Q6H PRN wears out usually 1 hour before he can get new one, so will change to Q5H PRN. Wound care has already been consulted. He is here for UTI. Urine culture is only yeast preliminary. He was initially started on meropenem, but no one, including nursing staff or patient/family, knows why. Admitting hospitalist's note does not mention why meropenem was started. I will try to get in touch with admitting physician. Since there is no confirmation of ESBL or the like, I will discontinue IV meropenem and start IV vancomycin and IV zosyn. Eric catheter was placed during last hospitalization about 1 week ago. He had some urinary retention. Urology was NOT consulted, but eric was placed. He was discharged with the eric to follow up with urology outpatient (he had appointment next week). I will consult urologist in the AM. I will give him 1-time diflucan for yeast noted in urine (likely due to poor catch and yeast probably not in urine, but more likely on his body due to poor hygeine. Will order topical nystatin TID for skin issues until wound care can see him. MIGUEL is improving, so will continue IVF and recheck BMP in AM. Blood glucose somewhat low in AM, but now normal. Patient's is in room and asks about an adrenal lesion noted on CT abdomen/pelvis few days ago. I counselled them that it is highly likely that it is benign, but we will order MRI abdomen without contrast per radiologist's recommendations. Based on those results, we may consider nephrology or endocrine referral. I have answered all of patient's and family's questions. - Constitutional Vitals: Temp Pulse Resp BP Pulse Ox 99.8 F H 74 18 92/45 90 03/30/18 15:49 03/30/18 15:49 03/30/18 15:49 03/30/18 15:49 03/30/18 15:49 General appearance: Present: disheveled, A&O X 3, pleasant, no acute distress, obese, answers questions appropriately - Respiratory Respiratory exam: Present: CTAB. Absent: accessory muscle use, rales, rhonchi, wheezes Additional comments: Normal WOB - Cardiovascular Cardiovascular exam: Present: RRR, +S1, +S2. Absent: diastolic murmur, gallop, rubs, systolic murmur Additional comments: No BLE edema - GI/Abdominal GI/Abdominal exam: Present: normal bowel sounds, soft. Absent: distended, hepatomegaly, mass, splenomegaly, tenderness - Psychiatric Psychiatric exam: Present: normal affect, normal mood. Absent: agitated, anxious, depressed - Skin Skin exam: Present: rash, warm. Absent: cyanosis, dry, intact Additional comments: Multiple areas of excoriated and erythematous skin, with discrete wounds on bilateral armpits and sacrum, with some white film Internal Medicine: Result - Labs CBC & Chem 7: 03/30/18 01:20 03/30/18 13:35 Labs: Short CBC 03/30/18 Range/Units 01:20 WBC 12.5 H (4.3-11.1) K/mcL Hgb 10.8 L (12.9-16.9) g/dL Hct 32.4 L (37.5-50.1) % Plt Count 192 (140-400) K/mcL Neutrophils # 9.9 H (1.6-8.9) K/mcL BMP 03/30/18 03/30/18 01:20 13:35 Sodium 135 L 139 Potassium 3.1 L 3.0 L Chloride 97 L 101 Carbon Dioxide 30 H 31 H BUN 62 H 46 H Creatinine 2.17 H 1.77 H Glucose 38 L* 131 H Calcium 8.5 L 8.3 L Cardiac Enzymes 03/29/18 03/30/18 Range/Units 19:16 01:20 Troponin I < 0.03 < 0.03 (< 0.04) ng/mL Liver Function 03/30/18 Range/Units 01:20 Total Bilirubin 0.3 (0.3-1.0) mg/dL AST 17 (13-39) Units/L ALT 12 (7-52) Units/L Alkaline Phosphatase 48 (34-104) Units/L Albumin 3.0 L (3.5-5.7) g/dL - ABG Interpretation ABG results: PT/INR, D-dimer PT 13.9 Seconds (9.4-12.1) H 03/30/18 01:20 Consult Discharge Plan - Plan Referrals: Aquiles Merrill MD [Primary Care Provider] - Lisa Laurent [Family Provider] -
[2018-03-30] MEDS ORDERED: Patient Taking Own Medication 1 EACH PO SCH (21:00)
[2018-03-31] MEDS: Piperacillin/Tazobactam 3.375 GM in 0.9 % Sodium Chloride Mini Bag 100 ML IVPB SCH ×3 (01:15→15:18)
[2018-03-31] MEDS: *HR* HYDROcodone/Acet 5/325 mg TABLET PO PRN ×4 (04:25→20:37)
[2018-03-31 04:37] LABS: Basophils % 0.2 %; Eosinophils # 0.1 K/mcL (0.0-0.6); Eosinophils % 0.7 %; Hematocrit 31.6 % (37.5-50.1); Hemoglobin 10.3 g/dL (12.9-16.9); Immature Granulocytes % 0.4 % (0-4); Lymphocytes # 2.2 K/mcL (0.6-4.6); Lymphocytes % 26.4 %; Mean Corpuscular HGB Conc 32.6 g/dL (31.6-35.5); Mean Corpuscular Hemoglobin 27.9 pg (28.0-33.3); Mean Corpuscular Volume 85.6 fL (83.0-100.0); Mean Platelet Volume 11.7 fL (9.4-12.4); Monocytes # 0.6 K/mcL (0.0-1.3); Monocytes % 7.7 %; Neutrophils # 5.4 K/mcL (1.6-8.9); Platelet Count 164 K/mcL (140-400); Red Blood Count 3.69 M/mcL (4.19-5.50); Red Cell Distribution Width 14.8 % (11.5-14.5); Segmented Neutrophils % 64.6 %
[2018-03-31 04:58] LABS: BUN/Creatinine Ratio 23 (6-26); Blood Urea Nitrogen 32 mg/dL (8-23); Calcium 8.1 mg/dL (8.6-10.3); Carbon Dioxide 30 mEq/L (23-29); Chloride 105 mEq/L (98-107); Glucose 109 mg/dL (70-105); Osmolality,Calculated 297 (280-300); Potassium 3.2 mEq/L (3.5-5.1); Sodium 140 mEq/L (136-145); eGFR For African Americans > 60 (> 60); eGFR For Non-African Americans 51 (> 60)
[2018-03-31] MEDS: *HR* Heparin 5,000 UNIT/ML VIAL SQ SCH ×3 (06:49→20:36)
[2018-03-31] MEDS: 0.9 % Sodium Chloride 1,000 ML IVC SCH ×2 (06:53→14:58)
[2018-03-31] MEDS: amLODIPine 5 MG TABLET PO SCH (07:37)
[2018-03-31] MEDS: Aspirin 81 MG TAB.CHEW PO SCH (07:38)
[2018-03-31] MEDS: Lactobacillus 1 EACH CAP.SPRINK PO SCH ×2 (07:38→20:36)
[2018-03-31] MEDS: Spironolactone 25 MG TABLET PO SCH (07:39)
[2018-03-31] MEDS: Insulin LISPRO 300 UNITS/3 ML VIAL SQ SCH ×4 (07:41→20:39)
[2018-03-31] MEDS: Nystatin POWDER 30 GM BOTTLE TP SCH ×3 (07:43→20:42)
--- NOTE | 2018-03-31 13:13 | Electrocardiograph Report ---
[address] [place] [address] Test Date: 2018-03-29 Pat Name: Susannah Coyne Department: 103 Room: 2A16 Gender: M Process Pumper: : 1955 Requested By: Efrem Walker Order Number: [id number] Reading MD: Adithya Magana Measurements Intervals [place] Rate: 85 P: 61 NH: 183 QRS: 16 QRSD: 118 T: 25 QT: 384 QTc: 426 Interpretive Statements SINUS RHYTHM Poor R wave progression INFERIOR MYOCARDIAL INFARCTION, PROBABLY OLD BASELINE ARTIFACT Electronically Signed On 03-31-2018 9:06:23 EDT by Adithya Magana
[2018-03-31] MEDS: Miconazole w/zinc oxide&karaya 92 APPL/92 GM TUBE TP SCH ×2 (15:00→20:41)
--- NOTE | 2018-03-31 15:05 | Urology - Consult Note ---
Date of Encounter: 03/31/18 Time of Encounter: 15:03 - Assessment and Plan (1) Acute kidney injury Current Visit: Yes Status: Acute Assessment and plan: Unsure of etiology of patient's acute kidney injury. Continue catheter drainage tonight. Serum creatinine has improved since admission. (2) UTI (urinary tract infection) Current Visit: Yes Status: Acute Assessment and plan: Agree with broad-spectrum antibiotics until cultures return. Qualifiers: Urinary tract infection type: acute cystitis Hematuria presence: without hematuria Qualified Code(s): N30.00 - Acute cystitis without hematuria (3) Urinary retention Current Visit: Yes Status: Acute Assessment and plan: I discussed the patient options regarding his catheter. He would really like to have his catheter removed. My plan is to have the catheter removed tomorrow morning. I will then reassess the patient around noon. If the patient is emptying adequately and we will leave the catheter out. I did explain to the patient and his family members that I have some concern regarding his ability to void secondary to minimal ambulation as well as poorly controlled diabetes. Patient understood this. Urology CN:HPI Consult date: 03/31/18 Reason for consult Urology: Other (urinary retention) Requesting physician: Warren Price History of present illness: Susannah is a 62-year-old male with history of recent admission a couple of weeks ago where the patient was found to be in urinary retention. Patient had catheter placed at that time with a large amount of urine returned. Unknown specific volume. Patient states that prior to this admission he was having some incontinence where he could not control his urination. He was not feeling as though he was in retention. This was diagnosed on CT scan. Patient also been found to have an elevated serum creatinine which has improved upon this admission. Patient now admitted secondary to low blood pressure with possible sepsis. Cultures pending. Patient does not like having his catheter in place. He is currently on Flomax. Patient is a diabetic who is poorly controlled with an A1c of 9.3%. Patient states that he has been ambulating minimally even at home. Past Med Surg Social Fam HX - Past Medical History Medical history: COPD, diabetes, hyperlipidemia, hypertension Psychiatric history: no psych history - Past Surgical History Surgical History: non-contributory - Social History Smoking Status: Current every day smoker Smokeless Tobacco Status: No Alcohol use: none Drug use: none - Family History Mother Adopted: No Family Member Ethnicity: Non- Living Status: Hx Family Cardiac Disorders: Yes Hx Family Endocrine Disorder: Yes (DM) Father Hx Family Cancer: Yes (colorectal) Medications and Allergies ALPRAZolam [Xanax 1 MG Tablet] 1 mg PO TID PRN 02/19/18 [History] Albuterol Sulfate [Proair Hfa] 1 - 2 puff IH Q6H PRN 02/19/18 [History] Amlodipine Besylate 10 mg PO DAILY 02/19/18 [History] Aspirin 81 mg PO DAILY 02/19/18 [History] Carvedilol [Coreg] 25 mg PO BID 02/19/18 [History] Empagliflozin [Jardiance] 10 mg PO DAILY 02/19/18 [History] Imipramine HCl [Tofranil] 10 mg PO HS 02/19/18 [History] Rosuvastatin Calcium [Crestor] 10 mg PO DAILY 02/19/18 [History] Spironolactone [Aldactone] 25 mg PO DAILY 02/19/18 [History] glyBURIDE [GlyBURIDE] 5 mg PO BID 02/19/18 [History] metFORMIN [Glucophage] 500 mg PO BID 02/19/18 [History] Furosemide [Lasix] 40 mg PO BID 03/22/18 [History] Lactobacillus Acidophilus [Acidophilus Lactobacillus] 1 each PO BID #20 capsule 03/24/18 [Rx] Tamsulosin HCl [Flomax] 0.4 mg PO HS #30 cap.er.24h 03/24/18 [Rx] levoFLOXacin [Levaquin] 750 mg PO Q48H #4 tablet 03/24/18 [Rx] Polyethylene Glycol 3350 [MiraLAX Powder Bulk 17.9 Oz] 1 scoop PO DAILY #510 gm 03/25/18 [Rx] Losartan Potassium [Cozaar] 25 mg PO DAILY 03/29/18 [History] 3 Allergy/AdvReac Type Severity Reaction Status Date / Time atorvastatin [From Lipitor] Allergy Hives Verified 03/29/18 09:46 cephalexin [From Keflex] Allergy Hives Verified 03/29/18 09:46 naproxen [From Naprosyn] Allergy Hives Verified 03/29/18 09:46 Oxycodone [From Percocet] Allergy Hives Verified 03/29/18 09:46 Tetracycline Allergy Hives Verified 03/29/18 09:46 Review of Systems - Constitutional no chills, no fever(s) - EENT Nose, mouth and throat: no dizziness - Cardiovascular no chest pain, no diaphoresis - Respiratory no cough, no dyspnea - Gastrointestinal no abdominal pain, no nausea, no vomiting - Genitourinary as per HPI - Musculoskeletal no back pain, no muscle weakness - Integumentary no erythema, no swelling - Neurological no confusion - Psychiatric no anxiety, no depression - Hematologic/Lymphatic no easy bleeding, no lymphadenopathy - Allergic/Immunologic no throat swelling, no wheezing Exam Initial Vital Signs Temp Pulse Resp BP Pulse Ox 98.0 F 96 12 80/47 92 03/29/18 08:35 03/29/18 08:35 03/29/18 08:35 03/29/18 08:35 03/29/18 08:35 General/Neuological: alert and oriented x 3 Eyes: normal pupils, non-icteric Neck: no lymphadenopathy noted, supple to touch Cardiovascular: RRR, no murmurs Respiratory: normal respiratory effort, clear bilaterally ABD: soft, nontender, no masses palpated, good bowel sounds Back: no pain on percussion bilaterally : normal phallus, normal scrotum, testicles and epididymides normal, urethral meatus normal with catheter in place draining clear urine Skin: no rashes noted Musculoskeletal: normal gait, FROMx4 Urology Results - Labs 03/31/18 03:54 03/31/18 03:54 Abnormal lab results RBC 3.69 M/mcL (4.19-5.50) L 03/31/18 03:54 Hgb 10.3 g/dL (12.9-16.9) L 03/31/18 03:54 Hct 31.6 % (37.5-50.1) L 03/31/18 03:54 MCH 27.9 pg (28.0-33.3) L 03/31/18 03:54 RDW 14.8 % (11.5-14.5) H 03/31/18 03:54 PT 13.9 Seconds (9.4-12.1) H 03/30/18 01:20 APTT 25.0 Seconds (26.0-36.0) L 03/30/18 01:20 Potassium 3.2 mEq/L (3.5-5.1) L 03/31/18 03:54 Carbon Dioxide 30 mEq/L (23-29) H 03/31/18 03:54 BUN 32 mg/dL (8-23) H 03/31/18 03:54 Creatinine 1.42 mg/dL (0.70-1.30) H 03/31/18 03:54 Est GFR (Non-Af Amer) 51 (> 60) L 03/31/18 03:54 Glucose 109 mg/dL (70-105) H 03/31/18 03:54 POC Glucose 230 mg/dL (70-99) H 03/30/18 21:34 Lactic Acid 2.6 mmol/L (0.5-2.2) H 03/29/18 14:23 Calcium 8.1 mg/dL (8.6-10.3) L 03/31/18 03:54 Serum Total Protein 5.4 g/dL (6.4-8.9) L 03/30/18 01:20 Albumin 3.0 g/dL (3.5-5.7) L 03/30/18 01:20 HDL Cholesterol 18 mg/dL (40-59) L 03/30/18 01:20 Ur Specimen Adequacy See below A 03/29/18 09:04 Urine Clarity Turbid (Clear) A 03/29/18 09:04 Ur Specific [place] 1.028 (1.010-1.025) H 03/29/18 09:04 Urine Protein >=300 mg/dL (Neg-Trace) H 03/29/18 09:04 Urine Blood Large (Negative) H 03/29/18 09:04 Urine Bilirubin Small (Negative) H 03/29/18 09:04 Ur Leukocyte Esterase Small (Negative) H 03/29/18 09:04 Urine Microscopic RBC TNTC per hpf (0-3) H 03/29/18 09:04 Urine Microscopic WBC 3-5 per hpf (0-3) H 03/29/18 09:04 Ur Transition Epith Cell Moderate per hpf (None-Few) H 03/29/18 09:04 Urine Bacteria Many per hpf (None-Few) H 03/29/18 09:04 Granular Casts Few per lpf (None Seen) H 03/29/18 09:04 RBC Casts Few per lpf (None Seen) H 03/29/18 09:04 Urine Mucus Moderate (Few) H 03/29/18 09:04 Urine Yeast Few per hpf (None Seen) H 03/29/18 09:04 Ur Culture Indicated? YES (NO) A 03/29/18 09:04 Diabetes panel 03/31/18 Range/Units 03:54 Sodium 140 (136-145) mEq/L Potassium 3.2 L (3.5-5.1) mEq/L Chloride 105 (98-107) mEq/L Carbon Dioxide 30 H (23-29) mEq/L BUN 32 H (8-23) mg/dL Creatinine 1.42 H (0.70-1.30) mg/dL Glucose 109 H (70-105) mg/dL Calcium 8.1 L (8.6-10.3) mg/dL Calcium panel 03/31/18 Range/Units 03:54 Calcium 8.1 L (8.6-10.3) mg/dL Pituitary panel 03/31/18 Range/Units 03:54 Sodium 140 (136-145) mEq/L Potassium 3.2 L (3.5-5.1) mEq/L Chloride 105 (98-107) mEq/L Carbon Dioxide 30 H (23-29) mEq/L BUN 32 H (8-23) mg/dL Creatinine 1.42 H (0.70-1.30) mg/dL Glucose 109 H (70-105) mg/dL Calcium 8.1 L (8.6-10.3) mg/dL Adrenal panel 03/31/18 Range/Units 03:54 Sodium 140 (136-145) mEq/L Potassium 3.2 L (3.5-5.1) mEq/L Chloride 105 (98-107) mEq/L Carbon Dioxide 30 H (23-29) mEq/L BUN 32 H (8-23) mg/dL Creatinine 1.42 H (0.70-1.30) mg/dL Glucose 109 H (70-105) mg/dL Calcium 8.1 L (8.6-10.3) mg/dL All other labs normal. - Imaging CT scan - abdomen: image reviewed (Patient's bladder was above the umbilicus on CT scan done on prior admission) CT scan - pelvis: image reviewed Consult Discharge Plan - Plan Referrals: Aquiles Merrill MD [Primary Care Provider] -
--- NOTE | 2018-03-31 19:53 | Internal Med Progress Note ---
Date of Encounter: 03/31/18 Time of Encounter: 11:37 - Assessment and plan (1) UTI (urinary tract infection) Current Visit: Yes Status: Acute Assessment and plan: Urology consulted; appreciate input. Continue IV vancomycin and IV zosyn for UTI, and monitor for improvement. Looks to be somewhat improved, but still quite sick. Urine culture with only yeast preliminary. Follow up on final urine culture. Continue gentle IVF. Qualifiers: Urinary tract infection type: acute cystitis Hematuria presence: without hematuria Qualified Code(s): N30.00 - Acute cystitis without hematuria (2) Acute kidney injury Current Visit: Yes Status: Acute Assessment and plan: Improving. Continue IVF. Recheck BMP in AM. (3) Decubitus ulcer Current Visit: Yes Status: Chronic Assessment and plan: Wound care consulted. Topical nystatin is appropriate due to concern of yeast. Will await their recommendations and dress wounds accordingly. Qualifiers: Pressure ulcer location: sacral region Pressure ulcer stage: stage 2 Qualified Code(s): L89.152 - Pressure ulcer of sacral region, stage 2 (4) Diabetes mellitus Current Visit: Yes Status: Chronic Assessment and plan: Mild hypoglycemia resolved. Continue accuchecks and SSI QID AC/HS. Qualifiers: Diabetes mellitus type: type 2 Diabetes mellitus detention insulin use: without termite renewal inspector use Diabetes mellitus complication status: with unspecified complications Qualified Code(s): E11.8 - Type 2 diabetes mellitus with unspecified complications (5) Essential hypertension Current Visit: Yes Status: Chronic Assessment and plan: Continue home medications. (6) Urinary retention Current Visit: Yes Status: Acute Assessment and plan: Came in with eric. Was supposed to be removed this week by urology. Urology consulted; appreciate input. Plan for eric removal at noon tomorrow, followed by voiding trial. Will await further recommendations from urology. (7) DVT prophylaxis Current Visit: Yes Status: Acute Assessment and plan: Continue SQ heparin. - Time Spent With Patient Total time spent is greater than 50% in coordination of care (as documented) at patient's floor/unit and/or counseling patient: 25 - 35 minutes - Subjective Interval history: Patient had no acute events overnight. He states that he is feeling better today. He still has some pain in sacral wound area. He is here for UTI. Urine culture is still only yeast preliminary. He is now on IV vancomycin and IV zosyn. Looks to be clinically improving, but still ill-appearing. I spoke with and consulted urologist this AM about eric catheter and urinary retention. Plan to remove eric tomorrow at noon and do voiding trial. Awaiting wound care to see patient and make recommendations. Will order topical nystatin TID for skin issues until wound care can see him. MIGUEL is improving, so will continue IVF and recheck BMP in AM. Hypoglycemia now improved; likely secondary to not having full assist with diet yesterday. Patient's family very angry and complaining about not receiving any care from nurse/facilities maintenance supervisor yesterday. "They didn't turn him or come to feed him." I offered to make this right. They are agreeable to me offering to have nurse test desk supervisor come speak to them. Patient is having anxiety about scheduled MRI for adrenal lesion evaluation because he could not complete an MRI in past. I advised him that we can defer this to outpatient as anesthesiology here does not do sedation in MRI suite. I counselled him and family again that it is highly likely that it is benign, and there is no urgent need to work this up. Patient really wants to go home, and he is tearful at times. I advised him that he is too sick to go home yet, and likely needs a few more days of IV antibiotics. I have answered all of patient's and family's questions, and I have addressed all of their concerns regarding patient care. Patient has no complaints or needs at this time. Nurse and pharmacist were in room with me today. - Constitutional Vitals: Temp Pulse Resp BP Pulse Ox 98.6 F 67 18 126/62 94 03/31/18 16:04 03/31/18 16:04 03/31/18 18:23 03/31/18 16:04 03/31/18 18:23 General appearance: Present: disheveled, A&O X 3, pleasant, no acute distress, obese, answers questions appropriately - Respiratory Respiratory exam: Present: CTAB. Absent: accessory muscle use, rales, rhonchi, wheezes Additional comments: Normal WOB - Cardiovascular Cardiovascular exam: Present: RRR, +S1, +S2. Absent: diastolic murmur, gallop, rubs, systolic murmur Additional comments: No BLE edema - GI/Abdominal GI/Abdominal exam: Present: normal bowel sounds, soft. Absent: distended, hepatomegaly, mass, splenomegaly, tenderness - Psychiatric Psychiatric exam: Present: normal affect, normal mood. Absent: agitated, anxious, depressed - Skin Skin exam: Present: dry, intact, warm. Absent: cyanosis, rash Internal Medicine: Result - Labs CBC & Chem 7: 03/31/18 03:54 03/31/18 03:54 Labs: Short CBC 03/31/18 Range/Units 03:54 WBC 8.3 (4.3-11.1) K/mcL Hgb 10.3 L (12.9-16.9) g/dL Hct 31.6 L (37.5-50.1) % Plt Count 164 (140-400) K/mcL Neutrophils # 5.4 (1.6-8.9) K/mcL BMP 03/31/18 03:54 Sodium 140 Potassium 3.2 L Chloride 105 Carbon Dioxide 30 H BUN 32 H Creatinine 1.42 H Glucose 109 H Calcium 8.1 L - ABG Interpretation ABG results: PT/INR, D-dimer PT 13.9 Seconds (9.4-12.1) H 03/30/18 01:20 Consult Discharge Plan - Plan Referrals: Aquiles Merrill MD [Primary Care Provider] -
[2018-04-01] MEDS: 0.9 % Sodium Chloride 1,000 ML IVC SCH ×3 (00:05→09:49)
[2018-04-01] MEDS: Piperacillin/Tazobactam 3.375 GM in 0.9 % Sodium Chloride Mini Bag 100 ML IVPB SCH ×2 (00:25→10:02)
[2018-04-01] MEDS: *HR* HYDROcodone/Acet 5/325 mg TABLET PO PRN ×2 (02:20→10:01)
[2018-04-01] MEDS: *HR* Heparin 5,000 UNIT/ML VIAL SQ SCH (05:42)
[2018-04-01 07:04] LABS: Basophils % 0.3 %; Eosinophils # 0.2 K/mcL (0.0-0.6); Eosinophils % 1.9 %; Hematocrit 36.3 % (37.5-50.1); Hemoglobin 11.7 g/dL (12.9-16.9); Immature Granulocytes % 0.3 % (0-4); Lymphocytes % 21.2 %; Mean Corpuscular HGB Conc 32.2 g/dL (31.6-35.5); Mean Corpuscular Hemoglobin 27.6 pg (28.0-33.3); Mean Corpuscular Volume 85.6 fL (83.0-100.0); Mean Platelet Volume 10.9 fL (9.4-12.4); Monocytes # 0.6 K/mcL (0.0-1.3); Monocytes % 6.9 %; Neutrophils # 6.4 K/mcL (1.6-8.9); Platelet Count 175 K/mcL (140-400); Red Blood Count 4.24 M/mcL (4.19-5.50); Red Cell Distribution Width 14.6 % (11.5-14.5); Segmented Neutrophils % 69.4 %
[2018-04-01 07:26] LABS: BUN/Creatinine Ratio 16 (6-26); Blood Urea Nitrogen 16 mg/dL (8-23); Calcium 8.4 mg/dL (8.6-10.3); Carbon Dioxide 25 mEq/L (23-29); Chloride 108 mEq/L (98-107); Glucose 130 mg/dL (70-105); Osmolality,Calculated 295 (280-300); Potassium 3.7 mEq/L (3.5-5.1); Sodium 141 mEq/L (136-145); eGFR For African Americans > 60 (> 60); eGFR For Non-African Americans > 60 (> 60)
[2018-04-01] MEDS: Spironolactone 25 MG TABLET PO SCH (09:46)
[2018-04-01] MEDS: amLODIPine 5 MG TABLET PO SCH (09:46)
[2018-04-01] MEDS: Aspirin 81 MG TAB.CHEW PO SCH (09:46)
[2018-04-01] MEDS: Lactobacillus 1 EACH CAP.SPRINK PO SCH (09:46)
[2018-04-01] MEDS: Miconazole w/zinc oxide&karaya 92 APPL/92 GM TUBE TP SCH (09:47)
[2018-04-01] MEDS: Insulin LISPRO 300 UNITS/3 ML VIAL SQ SCH ×2 (09:48→12:27)
[2018-04-01] MEDS: Nystatin POWDER 30 GM BOTTLE TP SCH (09:49)
[2018-04-01] MEDS ORDERED: Fluconazole 100 MG TABLET PO SCH (10:15)
--- NOTE | 2018-04-01 10:38 | Discharge Summary ---
- NOTES TO OUTPATIENT PROVIDER Notes to Outpatient Provider: f/u with PCP in one week. f/u with urology Dr. Rodriguez in 1-2 weeks Orders not resulted at time of discharge: Pending orders 04/02/18 13:00 Vancomycin,Trough Timed Date of Encounter: 04/01/18 Time of Encounter: 10:27 - Discharge Diagnosis (1) UTI (urinary tract infection) Priority: Primary Status: Acute Qualifiers: Urinary tract infection type: acute cystitis Hematuria presence: without hematuria Qualified Code(s): N30.00 - Acute cystitis without hematuria (2) Acute kidney injury Priority: Primary Status: Acute (3) Diabetes mellitus Priority: Secondary Status: Chronic Qualifiers: Diabetes mellitus type: type 2 Diabetes mellitus long-term insulin use: 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 Coyne is a 62 year old male who is a background medical history of diabetes, hypertension, dyslipidemia, sacral ulcer pt admitted here for UTI and urinary retention. He also developed MIGUEL. Eric cath placed in and held all his diuretics. He was started on gentle hydration too. His Cr started improving slowly. His UA showed many bacteria and yeast, he was started on empirical abx zosyn and diflucan. His urine cx did not grow any bacteria. However due to his symptoms we decided to give full cur of abx, switched to PO Augmentin. Pt was evaluated by Urologist, we removed his eric cath this morning since then he is voiding well. His post voided bladder scan 160ml. So will d/c him home in stable condition with no eric cath. - Time Spent with Patient Total time spent providing and/or coordinating discharge services: - Discharge Medications Prescriptions: Amoxicillin/Clavulanate [Augmentin] 875 mg PO BIDWM #6 tablet Miconazole w/zinc oxide&karaya [Antifungal Extra Thick] 1 appl TP BID #1 tube Home Medications: ALPRAZolam [Xanax 1 MG Tablet] 1 mg PO TID PRN 02/19/18 [History] Albuterol Sulfate [Proair Hfa] 1 - 2 puff IH Q6H PRN 02/19/18 [History] Amlodipine Besylate 10 mg PO DAILY 02/19/18 [History] Aspirin 81 mg PO DAILY 02/19/18 [History] Carvedilol [Coreg] 25 mg PO BID 02/19/18 [History] Empagliflozin [Jardiance] 10 mg PO DAILY 02/19/18 [History] Imipramine HCl [Tofranil] 10 mg PO HS 02/19/18 [History] Rosuvastatin Calcium [Crestor] 10 mg PO DAILY 02/19/18 [History] Spironolactone [Aldactone] 25 mg PO DAILY 02/19/18 [History] glyBURIDE [GlyBURIDE] 5 mg PO BID 02/19/18 [History] metFORMIN [Glucophage] 500 mg PO BID 02/19/18 [History] Lactobacillus Acidophilus [Acidophilus Lactobacillus] 1 each PO BID #20 capsule 03/24/18 [Rx] Tamsulosin HCl [Flomax] 0.4 mg PO HS #30 cap.er.24h 03/24/18 [Rx] Polyethylene Glycol 3350 [MiraLAX Powder Bulk 17.9 Oz] 1 scoop PO DAILY #510 gm 03/25/18 [Rx] Losartan Potassium [Cozaar] 25 mg PO DAILY 03/29/18 [History] Amoxicillin/Clavulanate [Augmentin] 875 mg PO BIDWM #6 tablet 04/01/18 [Rx] Furosemide [Lasix] 40 mg PO DAILY #0 04/01/18 [Rx] Miconazole w/zinc oxide&karaya [Antifungal Extra Thick] 1 appl TP BID #1 tube [Rx] Allergies/Adverse Reactions: 3 Allergy/AdvReac Type Severity Reaction Status Date / Time atorvastatin [From Lipitor] Allergy Hives Verified 03/29/18 09:46 cephalexin [From Keflex] Allergy Hives Verified 03/29/18 09:46 naproxen [From Naprosyn] Allergy Hives Verified 03/29/18 09:46 Oxycodone [From Percocet] Allergy Hives Verified 03/29/18 09:46 Tetracycline Allergy Hives Verified 03/29/18 09:46 Date of admission: 03/29/18 12:01 Primary care physician: Aquiles Merrill, Consults: 03/29/18 23:50 Consult to Wound Care [CONS] Routine Reason for Consult: please make recommendations for wound care. Call Completed: No 03/30/18 19:33 Consult to Urology [CONS] Routine Consulting Provider: [facility] Reason for Consult: Urinary Retention during last hospitalization. Was discharged with eric but admitted before outpatient urology follow up next week. Can you please see patient and address the eric and urinary retention? I am treating him for UTI with IVF, IV vancomycin, and IV zosyn. I will try to call you tomorrow AM, but please feel free to call me anytime. Thanks for your help and input. Call Completed: No 04/01/18 10:16 Consult to Occupational Therapy [CONS] Routine Comment: Evaluate, develop and implement POC Reason for Consult: eval for poss ecf, pre-cert Does patient have active BEDREST order?: Yes Is patient medically & hemodynamically stable?: No Consult to Physical Therapy [CONS] Routine Comment: Evaluate, develop and implement POC Reason for Consult: needs eval fro poss ecf, pre-cert Does patient have active BEDREST order?: No Is patient medically & hemodynamically stable?: Yes - Constitutional Vitals: Temp Pulse Resp BP Pulse Ox 99.8 F H 69 16 128/66 97 04/01/18 03:51 04/01/18 03:51 04/01/18 03:51 04/01/18 03:51 04/01/18 03:51 General appearance: Present: A&O X 3, pleasant, no acute distress, obese, answers questions appropriately - Head Head exam: Present: atraumatic, normal inspection - Neck Neck exam general surgery: Present: supple - Respiratory Respiratory exam: Absent: respiratory distress, rhonchi - Cardiovascular Cardiovascular exam: Present: RRR, +S1, +S2. Absent: tachycardia - GI/Abdominal GI/Abdominal exam: Present: normal bowel sounds, soft. Absent: rebound, rigid, tenderness - Extremities Exam Extremities exam: Present: pedal edema. Absent: calf tenderness, tenderness - Patient Status Disposition: Home, Self-Care Condition: Good Overall status at discharge: patient is back to baseline - Discharge Instructions Follow Up With: Aquiles Merrill MD [Primary Care Provider] - - Diet and Activity Activity: increase activity as tolerated - VTE Documentation of Mechanical Device: Graduated compression elastic hosiery
[2018-04-01 12:54] VITALS: BP 122/54
--- NOTE | 2018-04-01 13:10 | Urology Progress Note ---
Date of Encounter: 04/01/18 Time of Encounter: 13:07 - Assessment and Plan (1) Acute kidney injury Current Visit: Yes Status: Acute Assessment and plan: resolved (2) UTI (urinary tract infection) Current Visit: Yes Status: Acute Assessment and plan: recommend 2 weeks of diflucan. Qualifiers: Urinary tract infection type: acute cystitis Hematuria presence: without hematuria Qualified Code(s): N30.00 - Acute cystitis without hematuria (3) Urinary retention Current Visit: Yes Status: Acute Assessment and plan: emptying well at this time. patient already scheduled for f/u with Dr. Gaitan. Progress Note Narrative: Patient seen. Patient has been voiding well since catheter removed. Objective Initial Vital Signs Temp Pulse Resp BP Pulse Ox 98.0 F 96 12 80/47 92 03/29/18 08:35 03/29/18 08:35 03/29/18 08:35 03/29/18 08:35 03/29/18 08:35 - General physical appearance Present: well developed, well nourished - Abdomen Present: soft. Absent: tender - Labs 04/01/18 06:48 04/01/18 06:48 Diabetes panel 04/01/18 Range/Units 06:48 Sodium 141 (136-145) mEq/L Potassium 3.7 (3.5-5.1) mEq/L Chloride 108 H (98-107) mEq/L Carbon Dioxide 25 (23-29) mEq/L BUN 16 (8-23) mg/dL Creatinine 1.02 (0.70-1.30) mg/dL Glucose 130 H (70-105) mg/dL Calcium 8.4 L (8.6-10.3) mg/dL Calcium panel 04/01/18 Range/Units 06:48 Calcium 8.4 L (8.6-10.3) mg/dL Pituitary panel 04/01/18 Range/Units 06:48 Sodium 141 (136-145) mEq/L Potassium 3.7 (3.5-5.1) mEq/L Chloride 108 H (98-107) mEq/L Carbon Dioxide 25 (23-29) mEq/L BUN 16 (8-23) mg/dL Creatinine 1.02 (0.70-1.30) mg/dL Glucose 130 H (70-105) mg/dL Calcium 8.4 L (8.6-10.3) mg/dL Adrenal panel 04/01/18 Range/Units 06:48 Sodium 141 (136-145) mEq/L Potassium 3.7 (3.5-5.1) mEq/L Chloride 108 H (98-107) mEq/L Carbon Dioxide 25 (23-29) mEq/L BUN 16 (8-23) mg/dL Creatinine 1.02 (0.70-1.30) mg/dL Glucose 130 H (70-105) mg/dL Calcium 8.4 L (8.6-10.3) mg/dL - VTE Documentation of Mechanical Device: Graduated compression elastic hosiery Consult Discharge Plan - Plan Referrals: [facility] [Provider Group] - 04/08/18 9:30 am (Follow up will be with Dr. Rodriguez) Aquiles Merrill MD [Primary Care Provider] - 04/16/18 2:00 pm Prescriptions: Amoxicillin/Clavulanate [Augmentin] 875 mg PO BIDWM #6 tablet Miconazole w/zinc oxide&karaya [Antifungal Extra Thick] 1 appl TP BID #1 tube
[2018-04-01] MEDS ORDERED: Aminoglycoside Consult 1 EACH MC ONE (14:07)
== END 2018-04-01 14:08 | disposition home or self-care (01) | DRG 690 ==
LOC: EMEROO 08:33 → SUATTDRO 12:01 → 2ANU 12:01
PROVIDERS: ADMIT Hospitalist; ATTEND Family Medicine